=== PATIENT | female | born 1950 | race Caucasian/White ===

== ENCOUNTER → 2017-11-24 10:04 | Outpatient (CLI) | payer OTHER, SELFPAY ==
--- NOTE | 2017-11-24 | DI.MG.S_ITS ---
BILATERAL DIGITAL SCREENING MAMMOGRAM 3D/2D WITH CAD: 11/24/2017 CLINICAL: Routine screening. Comparison is made to exams dated: 03/16/2014 mammogram and 12/14/2009 mammogram - [facility]. The tissue of both breasts is extremely dense, which lowers the sensitivity of mammography. Current study was also evaluated with a Computer Aided Detection (CAD) system. No significant masses, calcifications, or other findings are seen in either breast. There has been no significant interval change. IMPRESSION: NEGATIVE There is no mammographic evidence of malignancy. A 1 year screening mammogram is recommended. This exam was interpreted at Station ID: [id number]. NOTE: For mammograms, a report in lay terms will be sent to the patient. Approximately 15% of breast malignancies will not be visualized mammographically. In the management of a palpable breast mass, a negative mammogram must not discourage biopsy of a clinically suspicious lesion. Electronically Signed By: Andreina laguerre/linda:11/26/2017 13:54:10 letter sent: Normal Exam ACR BI-RADS Category 1: Negative [id number]
== END ==
PROVIDERS: PCP Physician Assistant; Visit Provider Physician Assistant
DX: Z12.31 Encounter for screening mammogram for malignant neoplasm of breast (principal)
CPT/HCPCS: 77063; 77067

== ENCOUNTER → 2017-11-27 07:44 | Outpatient (CLI) | payer OTHER, SELFPAY ==
[2017-11-28 15:36] LABS: Progesterone 2.4 ng/mL
[2017-11-29 17:48] LABS: Z- Score (Female) -1.6 SD (-2.0 - +2.0)
== END ==
PROVIDERS: PCP Physician Assistant; Visit Provider Nurse Practitioner Family
DX: Z79.810 Long term (current) use of selective estrogen receptor modulators (SERMs) (principal)
CPT/HCPCS: 36415; 84144; 84305

== ENCOUNTER 2018-02-07 06:57 | Day surgery (SDC) | payer OTHER, SELFPAY ==
[2018-02-07] VITALS (10 sets, daily range): BP systolic 100–125; BP diastolic 45–73; PULSE 62–77; RESP 12–19; TEMP 35.9–37.4; O2SAT 92–99; BMI 32.8
[2018-02-07] MEDS: SODIUM CHLORIDE 0.9% 1,000 ML 21 ML IV (07:35)
[2018-02-07] MEDS: ONDANSETRON 4 MG/2 ML INJ IV (08:23)
[2018-02-07] MEDS: MIDAZOLAM 5 MG/5 ML VIAL IV (08:38)
[2018-02-07] MEDS: fentaNYL 250 MCG/5 ML INJ IV (08:39)
--- NOTE | 2018-02-07 08:56 | PM.HP.1 ---
History of Present Illness Date Patient Seen: 02/07/18 Time Patient Seen: 08:56 Chief complaint: [id number] SCREENING COLONOSCOPY Narrative: Taylor is a very pleasant 67-year-old lady who presents for her 1st screening colonoscopy. She denies any new problems or symptoms related to the function of her GI tract. She reports she needs a colonoscopy as part of the Health maintenance program. Patient History Family & Social History Family History: Reviewed 02/07/18 by Magui Mccain MD Meds Home Medications Medication Instructions Recorded Confirmed Type montelukast [Singulair] 10 mg PO QDAY #0 03/30/12 02/07/18 History cholecalciferol (vitamin D3) 1,000 unit PO DAILY 02/07/18 02/07/18 History [Vitamin D3] fexofenadine [Velvet Allergy] 30 mg PO DAILY 02/07/18 02/07/18 History oa-nw-IS-vit O-zwajc-tfy-coQ10 2 tab PO DAILY 02/07/18 02/07/18 History [Daily Multivitamin] progesterone micronized 100 mg PO QAM 02/07/18 02/07/18 History Allergies Allergy/AdvReac Type Severity Reaction Status Date / Time Penicillins Allergy Mild Nausea Verified 02/07/18 07:08 Sulfa (Sulfonamide Allergy Mild RASH Verified 02/07/18 07:08 Antibiotics) amoxicillin [From Augmentin] AdvReac Unknown nausea, Verified 02/07/18 07:08 fainted clavulanic acid AdvReac Unknown nausea, Verified 02/07/18 07:08 [From Augmentin] fainted Review of Systems Review of Systems All systems reviewed & are unremarkable except as noted in HPI and below Exam Vital Signs (past 8 hours): - 02/07/18 07:15 02/07/18 08:51 Temperature 98.2 F 96.7 F L Pulse Rate 77 77 Respiratory Rate 15 16 Blood Pressure 125/73 106/53 L Pulse Oximetry 95 92 Oxygen Delivery Method Room Air Narrative Exam Narrative: Very healthy well-nourished well-developed developed lady in no obvious distress. HEENT: Normocephalic and atraumatic, pupils equal round reactive to light accommodation with anicteric sclera Lungs: Clear to auscultation bilaterally, no wheezing Heart: Regular rate and rhythm without murmur rub or gallop Abdomen: Soft, nontender, active bowel sounds Extremities: Warm well perfused and without edema Assessment & Plan Plan: Assessment/Plan Narrative: Very pleasant, active, and healthy 67-year-old lady who presents for screening colonoscopy. We discussed the risks and benefits of the procedure the patient expressed a desire to complete it today.
--- NOTE | 2018-02-07 08:58 | PM.OP.1 ---
Operative Date/Time/Diagnoses Date of procedure: 02/07/18 Time of procedure: 08:58 Pre-op diagnosis: Screening Post-op diagnosis: same Procedure & Clinicians Procedure: Colonoscopy to the cecum Same procedure as scheduled: Yes Indications: No prior colonoscopy Surgeon: Magui Mccain Click Yes if Unassisted: Yes Anesthesia Type: Sedation (Versed 8 mg; fentanyl 150 mcg) Operative Notes Findings: 1. Excellent prep 2. No polyps or mass lesions 3. No AV malformations 4. Very minimal diverticulosis with just 2 or 3 pockets in the sigmoid colon 5. Grade 2 internal hemorrhoids Closure Type: not applicable Procedure in detail: After obtaining informed consent, the patient was brought to the GI suite and placed in the left lateral decubitus position on the examination table. After placement of appropriate monitors, the patient was given incremental doses of Versed and Fentanyl until an appropriate level of sedation was achieved. A time out was held per SCOAP protocol. A digital rectal examination was performed and did not reveal any masses or obstructing lesions. The colonoscope was gently passed into the patient's anus and the entire colon navigated to the level of the cecum with minimal difficulty. Once in the cecum, the scope was withdrawn being sure to go before and beyond all mucosal folds and prominences and get an excellent examination. The findings are noted above. At the level of the rectal vault, the scope was retroflexed and the internal anal canal was examined. The scope was straightened and air aspirated from the colon. The instrument was removed from the patient's body and the procedure was concluded. The patient was allowed to awaken from sedation without difficulty and taken to the post-anesthesia care unit in good condition. Total sedation time was 27 min Total withdrawal time was 14 min and 20 sec Complications: none Condition: stable Disposition: PACU Plan for aftercare: 1. Discharge to home 2. Plan for next colonoscopy in 10 years or as clinically indicated
== END 2018-02-07 10:00 | disposition home or self-care (01) ==
PROVIDERS: PCP Physician Assistant; Visit Provider Surgery
PROC: 0DJD8ZZ Inspection of Lower Intestinal Tract, Via Natural or Artificial Opening Endoscopic (ICD-10-PCS; CPT 45378; principal; 2018-02-07 07:45)
DX: Z12.11 Encounter for screening for malignant neoplasm of colon (principal); K57.30 Diverticulosis of large intestine without perforation or abscess without bleeding; K64.1 Second degree hemorrhoids
CPT/HCPCS: 45378; 99152; 99153; J2250; J2405; J3010

== ENCOUNTER → 2018-05-10 15:00 | Outpatient (CLI) | payer OTHER, SELFPAY ==
--- NOTE | 2018-05-10 | DI.CT.S_ITS ---
PROCEDURE: CT SINUS SCREEN WO CON INDICATIONS: chronic sinusitis TECHNIQUE: Noncontrast 3.0 mm axial images acquired from the frontal sinuses to the mid-sella, with coronal and sagittal reformats. For radiation dose reduction, the following was used: automated exposure control, adjustment of mA and/or kV according to patient size. COMPARISON: None. FINDINGS: Image quality: Excellent. Paranasal sinuses are normally aerated. Minimal mucosal thickening noted in the posterior aspect of the sphenoid sinuses. No air-fluid levels are identified. The osteomeatal units are patent bilaterally. No osseous erosive changes or osseous remodeling. There is osseous thickening along the posterior sphenoid sinus castano.. Nasal septum is deviated to the right. Small left geetha bullosa is noted. The anterior ethmoid artery notches are protected bilaterally. Type III cribriform plate is noted. The right lamina cribrosa situated approximately 2 mm inferior to the left lamina cribrosa. No frontal recess cells. The sphenoid pneumatization pattern is sellar incomplete. The sphenoid intersinus septum is midline. Type I optic canals noted. IMPRESSION: Mild chronic sphenoid sinusitis. Dictated by: Melissa Adam MD, PhD on 05/10/2018 at 15:32 Approved by: Melissa Adam MD, PhD on 05/10/2018 at 15:37
== END ==
PROVIDERS: PCP Physician Assistant; Visit Provider Otolaryngology
DX: J32.3 Chronic sphenoidal sinusitis (principal); J30.9 Allergic rhinitis, unspecified
CPT/HCPCS: 70486

== ENCOUNTER → 2018-11-07 12:37 | Outpatient (CLI) | payer OTHER, SELFPAY | PROVIDERS: PCP Physician Assistant | DX: Z23 Encounter for immunization (principal) | CPT/HCPCS: 90471; 90686 ==

== ENCOUNTER → 2019-01-25 09:50 | Outpatient (CLI) | payer OTHER, SELFPAY ==
--- NOTE | 2019-01-25 | DI.RAD.S_ITS ---
PROCEDURE: XR KNEE LT 1TO2V INDICATIONS: SCIATICA OF LEFT SIDE TECHNIQUE: 2 views of the knee were acquired. COMPARISON: [facility], , KNEE 3V RIGHT, 09/05/2013, 9:03. FINDINGS: Bones: No fractures or dislocations. No suspicious bony lesions. There is moderate lateral femorotibial joint space narrowing seen, with associated remodeling changes including subchondral sclerosis and osteophyte formation along the jointline. Soft tissues: No joint effusion. No suspicious soft tissue calcifications. IMPRESSION: Osteoarthritic degenerative changes are seen, which are most prominent involving the lateral femorotibial compartment. Dictated by: Gato Vicente M.D. on 01/25/2019 at 9:38 Approved by: Gato Vicente M.D. on 01/25/2019 at 9:39
== END ==
PROVIDERS: PCP Physician Assistant; Visit Provider Physician Assistant
DX: M54.32 Sciatica, left side (principal); M25.762 Osteophyte, left knee
CPT/HCPCS: 73560

== ENCOUNTER 2019-02-03 03:56 | Emergency (ER) | payer OTHER, SELFPAY ==
[2019-02-03 04:07] VITALS: BP 153/83; PULSE 94; RESP 16; TEMP 36.4; O2SAT 97; BMI 32.3
--- NOTE | 2019-02-03 04:14 | PC.NURSE ---
left tonsil bleeding after tonsilectomy 6 days ago.
[2019-02-03] MEDS: RACEPINEPHRINE 0.5 ML NEB INH (04:15)
[2019-02-03 04:23] VITALS: PULSE 72; RESP 16; O2SAT 99
--- NOTE | 2019-02-03 04:33 | ED_ITS ---
HPI - General Adult General Chief complaint: Dental/Oral Stated complaint: bleeding after tonsil removed Time Seen by Provider: 02/03/19 04:07 Source: patient Mode of arrival: Ambulatory Limitations: no limitations History of Present Illness HPI narrative: 68-year-old woman who is now 6 days post tonsillectomy after recurrence left peritonsillar abscess. Healing have been going well. She woke up just prior to arrival felt ?something? in the back of her throat coughed had a bit of bloody production and then began bleeding. The bleeding is coming from the left tonsillar pillar. She is able to speak in full sentences sitting upright using a suction device is able to control the bleeding. Related Data Home Medications Medication Instructions Recorded Confirmed montelukast [Singulair] 10 mg PO QDAY #0 03/30/12 04/10/18 cholecalciferol (vitamin D3) 1,000 unit PO DAILY 02/07/18 04/10/18 [Vitamin D3] fexofenadine [Velvet Allergy] 30 mg PO DAILY 02/07/18 04/10/18 ll-xp-NJ-vit N-casau-eoc-coQ10 2 tab PO DAILY 02/07/18 04/10/18 [Daily Multivitamin] progesterone micronized 100 mg PO QAM 02/07/18 04/10/18 estradiol [Estrace] 1 g VAGINAL 2XW 04/10/18 04/10/18 Allergies Allergy/AdvReac Type Severity Reaction Status Date / Time Penicillins Allergy Mild Nausea Verified 02/07/18 07:08 Sulfa (Sulfonamide Allergy Mild RASH Verified 02/07/18 07:08 Antibiotics) amoxicillin [From Augmentin] AdvReac Unknown nausea, Verified 02/07/18 07:08 fainted clavulanic acid AdvReac Unknown nausea, Verified 02/07/18 07:08 [From Augmentin] fainted Review of Systems Review of Systems Narrative: Denies ? fever ? cough ? cold ? chills ? chest pain ? dyspnea ? orthopnea ? wheezing ? abdominal pain ? change to bowel or bladder habits ? nausea vomiting ? skin changes ? rashes Patient History Social History Smoking Status: Never smoker Smoking Status: Never smoker alcohol intake frequency: 0-2 drinks per day Substance Use Type: does not use Exam Narrative Exam Narrative: General: Alert appropriate, speaking in full sentences, managing secretions and airway HEENT: Nicely healing right peritonsillar base post surgery. Left side with more eschar over the anterior tonsillar base and posterior to this in the superior portion posterior tonsillar space there is active bleeding with clot trying deformed. It is not pulsatile and patient is able to manage volume of blood Respiratory: no obvious respiratory distress, minor wheezes right side Cardiovascular: Regular rate and rhythm no murmurs Skin: No obvious rashes, warm and dry Neurologic: Grossly intact no obvious asymmetries or abnormalities Psych, appropriate insight and affect, cooperative Initial Vital Signs Initial Vital Signs: Vital Signs Temperature 97.6 F 02/03/19 04:07 Pulse Rate 94 H 02/03/19 04:07 Respiratory Rate 16 02/03/19 04:07 Blood Pressure 153/83 H 02/03/19 04:07 Pulse Oximetry 97 02/03/19 04:07 Course Course Course Narrative: Six day postsurgical peritonsillar hemorrhage. On arrival in the emergency room we gave her nebulized epinephrine followed by 500 mg of nebulized TXA. Bleeding was dramatically slowed and may possibly have been stopped. Clot was visible in the left tonsillar base. Using of bit of gauze soaked in TXA direct pressure and TXA is applied to the base/bleeding site. Adequate hemostasis was obtained. Patient was doing well after application of medicine. Orders Ordered: Discontinued Medications Epinephrine (Epinephrine Racemic) 0.5 ml INH NOW ONE Stop: 02/03/19 04:11 Last Admin: 02/03/19 04:15 Dose: 0.5 ml Documented by: NGHIA Ondansetron HCl (Zofran Odt) 4 mg SL NOW ONE Stop: 02/03/19 04:48 Last Admin: 02/03/19 04:52 Dose: 4 mg Documented by: NUNU Tranexamic Acid (Cyklokapron) 1,000 mg MM NOW ONE Stop: 02/03/19 04:14 Last Admin: 02/03/19 04:55 Dose: 1,000 mg Documented by: NUNU Reevaluation(s) Reevaluation #1: She had a large clot down the posterior pharynx that she was able to get out effectively. After getting this out she is feeling some ?seeping? but is having no active bleeding. Sitting upright and quite comfortable Re-evaluation approximately 5 minutes later there's a nice clot forming over the left tonsillar pillar. Still no recurrence active bleeding. Zofran is given to prevent any emesis Time: 05:30 Reevaluation #2: Still a slow ooze with continued flow clot formation over the left tonsillar pillar. Will touch base with ENT. Remains hemodynamically stable and otherwise comfortable Time: 05:42 Vital Signs Vital signs: Vital Signs - 8 hr 02/03/19 04:07 02/03/19 04:23 02/03/19 05:03 Temperature 97.6 F Pulse Rate 94 H 72 81 Respiratory Rate 16 16 Blood Pressure 153/83 H Blood Pressure [Left Arm] 164/85 H Pulse Oximetry 97 99 99 Medical Decision Making Medical Records Medical records reviewed: Yes I reviewed the patient's medical records. MDM Narrative Medical decision making narrative: Case is reviewed with Dr. Massey. Patient is continuing to do well with slight oozing continued clot formation without active bleeding at this time. Continue to observe her over the next hour and will discharge her home with instructions to follow-up immediately this morning in the [facility] office. Dr. Massey will further evaluate and see if any additional treatment options are required. Discharge Plan Departure Patient Disposition: Home Clinical Impression: Post tonsillectomy secondary hemorrhage Instructions: DI for Tonsillectomy-Adult Activity Restrictions/Additional Instructions: Thank you for coming in today. I'm sorry that you needed to. It looks like some of the scab broke away from the left healing tonsil site. There was some bleeding that was controlled with nebulized racemic epi , nebulized transexamic acid and a slight amount of pressure and direct application of topical transexamic acid. With the bleeding significantly slowed and possibly even stopped at this point, I have spoken with Dr. Massey. There's no additional treatment needs to be done in the emergency department however, he would like to see you 1st thing this morning. He expects to be in the office by 715 or 730. After your discharge from the emergency department please go directly to his office. Please hold off on eating any food or drink until his had a chance to look and make sure that that clot is stabilized in the bleeding is completely controlled. I hope you heal quickly and I wish you the very best Prescriptions: No Action montelukast [Singulair] 10 MG tablet 10 mg PO QDAY Qty: 0 RF: 0 estradiol [Estrace] 0.01 % (0.1 mg/gram) Cream 1 g VAGINAL 2XW RF: 0 progesterone micronized 100 mg Capsule 100 mg PO QAM RF: 0 fexofenadine [Velvet Allergy] 60 mg Tablet 30 mg PO DAILY RF: 0 cholecalciferol (vitamin D3) [Vitamin D3] 1,000 unit Capsule 1,000 unit PO DAILY RF: 0 Daily Multivitamin 200-100-500 mcg Capsule 2 tab PO DAILY RF: 0 Referrals: Yaneth Bojorquez PA-C [Primary Care Provider] -
--- NOTE | 2019-02-03 04:38 | PC.NURSE ---
Pt reports the bleeding hasn't slowed after racemic epi and TXA nebs. Dr Fitzpatrick now at bedside applying TXA topically to bleeder.
[2019-02-03] MEDS: ONDANSETRON 4 MG ODT SL (04:52)
[2019-02-03] MEDS: TRANEXAMIC ACID 1,000 MG VIAL 1000 MG MM (04:55)
--- NOTE | 2019-02-03 04:55 | PC.NURSE ---
txa given by sam lewis in a neb per dr dawn order.
[2019-02-03 05:03] VITALS: BP 164/85; PULSE 81; O2SAT 99
--- NOTE | 2019-02-03 05:24 | PC.NURSE ---
Pt reports bleeding is slowing now.
[2019-02-03 06:03] VITALS: BP 122/71; PULSE 79; RESP 19; O2SAT 94
[2019-02-03 07:19] VITALS: BP 122/71; PULSE 77; RESP 16; O2SAT 94
--- NOTE | 2019-02-03 07:22 | PC.NURSE ---
patient taken to Dr Lam[facility] with daughter
== END 2019-02-03 07:23 | disposition home or self-care (01) ==
PROVIDERS: Emergency Provider Emergency Medicine; PCP Physician Assistant
DX: J95.830 Postprocedural hemorrhage of a respiratory system organ or structure following a respiratory system procedure (principal)
CPT/HCPCS: 94640; 99282; 99283

== ENCOUNTER 2019-02-07 03:36 | Emergency (ER) | payer OTHER, SELFPAY ==
[2019-02-07 03:44] VITALS: BP 140/60; PULSE 72; RESP 15; TEMP 36.5; O2SAT 95; BMI 30.7
[2019-02-07] MEDS: TRANEXAMIC ACID 1,000 MG VIAL 1000 MG MM (03:58)
--- NOTE | 2019-02-07 04:00 | PC.NURSE ---
PT had recent tonsillectomy. clot seen on left side of throat. pt reports still being able to taste blood.
[2019-02-07] MEDS: KETOROLAC 60 MG/2 ML VIAL IM (04:37)
--- NOTE | 2019-02-07 04:37 | ED_ITS ---
HPI - Dental/Oral General Chief complaint: Dental/Oral Stated complaint: Tonsil bleeding Time Seen by Provider: 02/07/19 03:36 Source: patient Mode of arrival: Family Vehicle Limitations: no limitations History of Present Illness HPI Narrative: 68-year-old female non smoker presents with the chief complaint of mild amount of bleeding which she noticed upon awaking tonight. She had a tonsillectomy on 01/28 with local ENT. She'd been seen a few days ago with a much more impressive bleed, which was controlled with nebulized TXA. She'd been seen in follow up and had done well until tonight. She thought the bleeding started after a pill of motrin got caught and she hacked it up. She denies any pain. She denies trouble breathing or choking. She has no dizziness, weakness, or shortness of breath. She is otherwise well and free of complaint. Onset (ago): minute(s) Duration: now resolved Severity: mild Relieving factors: nothing Exacerbating factors: nothing Treatment prior to arrival: none Related Data Home Medications Medication Instructions Recorded Confirmed montelukast [Singulair] 10 mg PO QDAY #0 03/30/12 04/10/18 cholecalciferol (vitamin D3) 1,000 unit PO DAILY 02/07/18 04/10/18 [Vitamin D3] fexofenadine [Velvet Allergy] 30 mg PO DAILY 02/07/18 04/10/18 oj-hi-FF-vit C-gfeqn-mbh-coQ10 2 tab PO DAILY 02/07/18 04/10/18 [Daily Multivitamin] progesterone micronized 100 mg PO QAM 02/07/18 04/10/18 estradiol [Estrace] 1 g VAGINAL 2XW 04/10/18 04/10/18 Allergies Allergy/AdvReac Type Severity Reaction Status Date / Time Penicillins Allergy Mild Nausea Verified 02/07/18 07:08 Sulfa (Sulfonamide Allergy Mild RASH Verified 02/07/18 07:08 Antibiotics) amoxicillin [From Augmentin] AdvReac Unknown nausea, Verified 02/07/18 07:08 fainted clavulanic acid AdvReac Unknown nausea, Verified 02/07/18 07:08 [From Augmentin] fainted Review of Systems Constitutional Constitutional: Denies chills, Denies fatigue, Denies fever(s), Denies frequent falls, Denies lethargy and Denies weakness Eyes Eyes: Denies change in vision, Denies eye discharge, Denies irritation and Denies loss of vision ENT Ears, Nose, Mouth, and Throat: Denies change in voice, Denies dizziness, Denies neck pain, Denies sore throat, Denies throat swelling and Reports other Cardiovascular Cardiovascular: Denies chest pain, Denies irregular heart rhythm, Denies lightheadedness, Denies palpitations, Denies dyspnea, Denies dyspnea on exertion and Denies orthopnea Respiratory Respiratory: Denies cough, Denies dyspnea, Denies dyspnea on exertion and Denies wheezing Gastrointestinal Gastrointestinal: Denies abdominal pain, Denies change in bowel habits, Denies diarrhea, Denies nausea and Denies vomiting Genitourinary Genitourinary: Denies hematuria, Denies flank pain, Denies urinary incontinence and Denies urinary urgency Musculoskeletal Musculoskeletal: Denies back pain, Denies muscle weakness, Denies neck pain, Denies numbness and Denies tingling Integumentary/Breasts Skin/Breast: Denies pruritus, Denies erythema, Denies rash and Denies wounds Neurologic Neurologic: Denies behavioral changes, Denies confusion, Denies dizziness, Denies frequent falls, Denies loss of vision, Denies numbness, Denies tingling and Denies weakness Psychiatric Psychiatric: Denies anxiety, Denies behavioral changes, Denies confusion, Denies depression, Denies homicidal ideation and Denies suicidal ideation Endocrine Endocrine: Denies fatigue, Denies flushing and Denies palpitations Hematologic/Lymphatic Hematologic/Lymphatic: Denies easy bruising Allergic/Immunologic Allergic/Immunologic: Denies urticaria, Denies throat swelling and Denies wheezi ng Patient History Social History Smoking Status: Never smoker Smoking Status: Never smoker alcohol intake frequency: 0-2 drinks per day Substance Use Type: does not use Exam Narrative Exam Narrative: GEN: AOx3 and in mild distress EYES: Pupils are equal, round, and reactive to light and accommodation. Extraoccular muscles are intact bilaterally. There is no subconjunctival hemorrhage or exudate. ENT: no active bleeding on tonsillar bed, but there is fresh clot on the left. No significant swelling or other abnormal findings CHEST: Lungs are clear to auscultation bilaterally and free of wheezes, rales, or rhonchi. Heart rate is regular rhythm, there are no murmurs, clicks, rubs, or gallops. There is no chest wall tenderness. ABD: Abdomen is soft and nontender. There is no guarding or rebound. Bowel sounds are normal in all 4 quadrants. There is no mass or organomegaly. EXT: Full painless ROM of all extremities with no loss of sensation or strength. SKIN: Warm, pink, and dry. No erythema or rash Initial Vital Signs Initial Vital Signs: Vital Signs Temperature 97.7 F 02/07/19 03:44 Pulse Rate 72 02/07/19 03:44 Respiratory Rate 15 02/07/19 03:44 Blood Pressure 140/60 02/07/19 03:44 Pulse Oximetry 95 02/07/19 03:44 Course Course Course Narrative: nebulized TXA results in hemostasis. Patient doing quite well. Call to [facility] ENT (Sandra) whom is in agreement with our treatment and plan to DC with close follow up. Orders Ordered: Discontinued Medications Ketorolac Tromethamine (Toradol) 60 mg IM NOW ONE Stop: 02/07/19 04:34 Tranexamic Acid (Cyklokapron) 1,000 mg MM NOW ONE Stop: 02/07/19 03:48 Last Admin: 02/07/19 03:58 Dose: 1,000 mg Documented by: SYDNEY Vital Signs Vital signs: Vital Signs - 8 hr 02/07/19 03:44 Temperature 97.7 F Pulse Rate 72 Respiratory Rate 15 Blood Pressure 140/60 Pulse Oximetry 95 Discharge Plan Departure Patient Disposition: Home Clinical Impression: Post tonsillectomy secondary hemorrhage Instructions: DI for Post-Surgical Bleeding Activity Restrictions/Additional Instructions: *You have been diagnosed with [post-tonsillectomy hemorrhage ] *What to do: *Continue to take medications as directed. Stick with the clear liquid diet that you've been using. *Follow up with your ENT doctor later today, call the office at 0730 for an appointment. Let them know you were seen in the Emergency Department and that we ask that you be seen in follow up *Return to ER if you should have any new, worsening or concerning symptoms Prescriptions: No Action montelukast [Singulair] 10 MG tablet 10 mg PO QDAY Qty: 0 RF: 0 estradiol [Estrace] 0.01 % (0.1 mg/gram) Cream 1 g VAGINAL 2XW RF: 0 progesterone micronized 100 mg Capsule 100 mg PO QAM RF: 0 fexofenadine [Velvet Allergy] 60 mg Tablet 30 mg PO DAILY RF: 0 cholecalciferol (vitamin D3) [Vitamin D3] 1,000 unit Capsule 1,000 unit PO DAILY RF: 0 Daily Multivitamin 200-100-500 mcg Capsule 2 tab PO DAILY RF: 0 Referrals: Yaneth Bojorquez PA-C [Primary Care Provider] - Jack Knight MD [Physician] -
[2019-02-07 04:45] VITALS: BP 120/65; PULSE 61; O2SAT 96
== END 2019-02-07 04:46 | disposition home or self-care (01) ==
PROVIDERS: Emergency Provider Emergency Medicine; PCP Physician Assistant
DX: J95.830 Postprocedural hemorrhage of a respiratory system organ or structure following a respiratory system procedure (principal)
CPT/HCPCS: 96372; 99282; 99283; J1885

== ENCOUNTER → 2019-02-10 09:47 | Outpatient (CLI) | payer OTHER, SELFPAY ==
[2019-02-10 12:19] LABS: Progesterone, Total 1.09 ng/mL
== END ==
PROVIDERS: PCP Physician Assistant; Visit Provider Nurse Practitioner Family
DX: Z79.890 Hormone replacement therapy (principal); N95.1 Menopausal and female climacteric states
CPT/HCPCS: 36415; 84144

== ENCOUNTER → 2019-03-21 09:28 | Outpatient (CLI) | payer OTHER, SELFPAY ==
--- NOTE | 2019-03-21 09:30 | DI.CT.S_ITS ---
PROCEDURE: CT SOFT TISSUE NECK W CON INDICATIONS: LYMPHOMA (CLL) TECHNIQUE: After the administration of intravenous contrast, 3.0 mm axial sections acquired from the sella to the aortic arch. Additional oblique axial 3.0 mm sections acquired through the pharynx. 3 mm thick coronal and sagittal reformats were generated. For radiation dose reduction, the following was used: automated exposure control. COMPARISON: [facility], US, THYROID, 11/12/2015, 10:00. [facility], CT, NECK/CHEST/ABD/PEL W CONTRAST, 09/02/2015, 9:33. [facility], CT, NECK/CHEST/ABD/PEL W CONTRAST, 10/06/2016, 9:49. FINDINGS: Image quality: Excellent. Lymph nodes: Numerous enlarged bilateral level I, level II, level III, level IV, level V and level and neck lymph nodes are noted which have increased in size compared to 10/06/2016. Bilateral large supraclavicular and subpectoral enlarged chest lymph nodes are also noted which have also increased in size compared to 10/06/16. Vessels: Visualized vasculature appears patent. Neck spaces: Mucosal prominence is noted in the right tongue base causing partial opacification of the right vallecula. The nasopharynx, and pharynx demonstrate no mucosal lesions. The vocal cords, false vocal cords, pyriform sinuses, epiglottis, vallecula, and tongue base all appear normal. Extramucosal spaces appear unremarkable. Glands: The parotid and submandibular glands appear normal. Thyroid gland is stable in appearance compared to prior exams. Miscellaneous: Visualized brain and orbits appear normal. Lung apices appear clear. Partially visualized cyst versus bulla noted in the right lung apex. Superficial soft tissues appear normal. Bones: No suspicious bony lesions. Spine degenerative disc disease and facet arthropathy. Mild mucosal thickening noted in the maxillary sinuses. The mastoids appear unremarkable. IMPRESSION: 1. Extensive bilateral neck and upper chest lymphadenopathy. Numerous enlarged lymph nodes have increased in size compared to prior examination obtained 10/06/1116. Finding most compatible with recurrent/residual lymphoma. 2. Slight mucosal thickening involving the right tongue base causing partial opacification of the right vallecula. Recommend correlation with direct visualization to exclude mucosal-based neoplastic process. Dictated by: Melissa Adam MD, PhD on 03/21/2019 at 13:27 Approved by: Melissa Adam MD, PhD on 03/21/2019 at 13:37
[2019-03-21 09:52] LABS: Hemoglobin 12.3 g/dL (12.0-16.0); Mean Corpuscular HGB Conc 33.3 % (30-36); Mean Corpuscular Hemoglobin 31.8 PG (26-34); Mean Corpuscular Volume 95.4 fL (80-100); Platelet Count 205 X10^3/uL (150-400); Red Blood Cell Count 3.88 X10^6/uL (4.0-5.2); White Blood Cell Count 16.3 X10^3/uL (4.5-11.0)
[2019-03-21 09:53] LABS: Add Manual Diff / Slide Review YES
[2019-03-21 09:59] LABS: Alanine Aminotransferase 17 IU/L (<35); Albumin 4.4 g/dL (3.5-5.0); Albumin Globulin Ratio 1.6 (1.0-2.8); Alkaline Phosphatase 75 U/L (38-126); Aspartate Aminotransferase 30 IU/L (14-36); BUN Creatinine Ratio 21.4 (6-22); Bilirubin Total 0.8 mg/dL (0.2-1.3); Blood Urea Nitrogen 15 mg/dL (7-17); Calcium 9.4 mg/dL (8.4-10.2); Carbon Dioxide 26 mmol/L (22-32); Chloride 107 mmol/L (98-107); Estimated Glomerular Filt Rate > 60.0 mL/min (>60); Globulin 2.8 g/dL (1.7-4.1); Glucose 112 mg/dL (80-110); HEMOLYSIS < 15 (0-50); Lactate Dehydrogenase 412 U/L (313-618); Potassium 4.3 mmol/L (3.4-5.1); Sodium 140 mmol/L (137-145); Total Protein 7.2 g/dL (6.3-8.2)
[2019-03-21 10:11] LABS: Neutrophils Absolute Manual 1793 /uL (3000-5900); RBC Morphology Normal Morphology; Smudge Cells 2+; Total Cells Counted 100
--- NOTE | 2019-03-21 10:43 | DI.CT.S_ITS ---
PROCEDURE: CT CHEST ABD PEL W CON INDICATIONS: LYMPHOMA TECHNIQUE: After the administration of oral and intravenous contrast, 5 mm thick sections acquired from the lung apices to the symphysis. 5 mm coronal and sagittal reformats were performed, with additional 7 mm coronal MIP reformats through the lungs. For radiation dose reduction, the following was used: automated exposure control, adjustment of mA and/or kV according to patient size. COMPARISON: [facility], [place], PET/CT SKULL BASE TO MID THIGH, 06/26/2014, 12:17. [facility], CT, THORAX WITH CONTRAST, 01/14/2015, 14:07. [facility], CT, NECK/CHEST/ABD/PEL W CONTRAST, 10/06/2016, 9:49. [facility], CT, NECK/CHEST/ABD/PEL W CONTRAST, 03/27/2016, 9:52. [facility], CT, CT SOFT TISSUE NECK W CON, 03/21/2019, 10:47. FINDINGS: Image quality: Excellent. CHEST: Lungs and pleura: There are nodular airspace opacities in the right lower lobe medially, new since the last exam. No pleural effusions or pneumothorax. Central and peripheral airways are patent and normal in caliber. Mediastinum: Heart size is normal. No pericardial effusion. There are multiple enlarged mediastinal lymph nodes, slightly increased compared to the last exam. For example, a prevascular lymph node measures 1.1 mm, previously 6 mm. Thoracic aorta and central pulmonary arteriesare normal in size. Esophagus is normal in size. No hiatal hernia. Chest wall: There is extensive supraclavicular and axillary adenopathy, slightly increased. For example, a 1.5 x 2.5 cm right axillary lymph node previously measured 1.0 x 2.2 cm on the last examination. A 1.6 x 2.2 cm left axillary lymph node is unchanged in size. There is mild paraspinal soft tissue thickening bilaterally, new since last exam. ABDOMEN: Solid organs: Liver and spleen are normal in size. Gallbladder is normal. Biliary system is non-dilated. Pancreas enhances normally. No adrenal nodules. Both kidneys are normal in size and enhancement, without hydronephrosis. Peritoneum and bowel: Bowel loops are normal in caliber and wall thickness. There are colonic diverticula. No evidence for active diverticulitis. No free fluid or air. Nodes and vessels: There is retroperitoneal lymphadenopathy. The largest lymph node is in the periportal region measuring 2.5 x 4.2 cm, increasing in size (previously 2.1 x 3.2 cm). A conglomerate left para-aortic lymph nodes measure 2.7 x 2.9 cm, previously not visualized. There is bilateral common, internal and external iliac lymphadenopathy, increased compared to the last exam. For example, a 2.4 x 2.2 cm left common iliac lymph node Previously measured 1.8 x 2.1 mm. Aorta and inferior vena cava are normal in caliber. Miscellaneous: No ventral hernias. PELVIS: Genitourinary: Bladder wall thickness is normal. Miscellaneous: Mildly enlarged inguinal lymph nodes are present bilaterally, demonstrating interval enlargement. For instance, a 2.0 x 2.6 cm right inguinal lymph node previously measured 1.1 x 1.5 cm. No inguinal hernias. Bones: No suspicious bony lesions. No vertebral body compression fractures. IMPRESSION: 1. Progressive worsening of lymphadenopathy in lower neck, mediastinum, axillae, retrograde, iliac lymph node chains bilaterally and inguinal lymph node chains bilaterally, consistent with worsening of lymphoma. 2. New nodular airspace opacities in the medial aspect of the right lower lobe. Although infectious etiologies are most likely, pulmonary lymphoma cannot be excluded. 3. Paraspinal soft tissue swelling in the lower thorax bilaterally, new since the last exam. If clinically indicated, MRI may be helpful. Dictated by: Viktoriya Tran M.D. on 03/21/2019 at 12:05 Approved by: Viktoriya Tran M.D. on 03/21/2019 at 18:23
[2019-03-25 15:24] LABS: Beta-2-Microglobulin 4.55 mg/L (< 2.52)
== END ==
PROVIDERS: PCP Physician Assistant; Referring Provider Internal Medicine Hematology & Oncology; Visit Provider Internal Medicine Hematology & Oncology
DX: C83.01 Small cell B-cell lymphoma, lymph nodes of head, face, and neck (principal); C83.02 Small cell B-cell lymphoma, intrathoracic lymph nodes; R59.0 Localized enlarged lymph nodes
CPT/HCPCS: 36415; 70491; 71260; 74177; 80053; 82232; 83615; 85025; Q9967

== ENCOUNTER → 2019-11-06 | Outpatient (CLI) | payer OTHER, SELFPAY | PROVIDERS: PCP Physician Assistant; Referring Provider Internal Medicine; Visit Provider Internal Medicine | DX: Z23 Encounter for immunization (principal) | CPT/HCPCS: 90471; 90662 ==

== ENCOUNTER → 2019-11-12 13:15 | Outpatient (CLI) | payer OTHER, SELFPAY ==
--- NOTE | 2019-11-12 | DI.MRI.S_ITS ---
PROCEDURE: MR KNEE LT WO CON INDICATIONS: Left knee pain, history of CLL obtained from chart review. TECHNIQUE: Noncontrast sagittal PD fast spin echo and T2 fast spin echo with fat saturation, sagittal 3-D FLASH with fat saturation; coronal T1 spin echo and PD fast spin echo with fat saturation, and axial PD fast spin echo with fat saturation through the knee. COMPARISON: [facility], MR, KNEE WITHOUT CONTRAST, 09/05/2013, 20:35. [facility] [place], CR, XR KNEE ARTHRITIC SERIES LT, 04/14/2019, 15:00. FINDINGS: Image quality: Excellent. Menisci: Linear horizontally oriented high signal intensity traverses the medial meniscal body and posterior horn, demonstrating inferior articular surface extension. There is a bucket-handle anteroposterior tear of the lateral meniscus, with displacement of a portion of the posterior horn anteriorly. Cruciate ligaments: The anterior and posterior cruciate ligaments appear intact. Medial structures: The medial collateral ligament appears intact. Visualized portions of the pes anserinus tendons appear normal. No abnormal bursal fluid. Lateral structures: The lateral collateral ligament demonstrates mild T2 signal elevation at its femoral origin. The long and short heads of the biceps femoris tendon appear intact. The popliteus tendon appears normal. Iliotibial band appears normal. Anterior structures: The quadriceps and patellar tendons appear intact. Patellar alignment is normal. No femoral trochlear dysplasia or ventral trochlear prominence. No edema in the infrapatellar fat pad. Moderate prepatellar fluid. Bones and cartilage: No bone marrow contusions or fractures. Diffuse low T1 signal marrow infiltration within the distal femur, proximal tibia and fibula . There is a rim of moderate STIR signal elevation within the soft tissues surrounding the distal femur, proximal tibia and fibula, measuring 5 mm or less in thickness. This finding is most suggestive of lymphomatous infiltration, given the patient's history. There is moderate articular cartilage loss diffusely overlying the weight-bearing aspects of the medial femoral condyle and medial tibial plateau. Severe articular cartilage loss overlies the weight-bearing aspects of the lateral femoral condyle and lateral tibial plateau. Mild articular cartilage loss overlies the medial and lateral patellar facets, and there is a superimposed high-grade region of articular cartilage loss measuring 5 mm overlying the lateral apex. Joint space: There is a small knee joint effusion and a small Zaman's cyst. Normal appearing synovial plicae are incidentally noted. 18 mm ganglion cyst at the posterior superior aspect of the intercondylar notch. IMPRESSION: 1. Lymphoma infiltration involving the distal femur, proximal tibia and fibula. There is abnormal signal intensity within the soft tissues surrounding these osseous structures, suggestive of reactive soft tissue edema versus soft tissue infiltration. 2. Tricompartmental osteoarthritis with associated articular cartilage loss. 3. Bucket-handle type tear of lateral meniscus. Horizontal type tear of medial meniscus. 4. Knee joint effusion and Zaman's cyst. 5. Partial thickness lateral collateral ligament tear. Dictated by: Deloris Blackwood M.D. on 11/12/2019 at 14:28 Approved by: Deloris Blackwood M.D. on 11/12/2019 at 14:36
== END ==
PROVIDERS: PCP Physician Assistant; Referring Provider Orthopaedic Surgery; Visit Provider Orthopaedic Surgery
DX: C83.08 Small cell B-cell lymphoma, lymph nodes of multiple sites (principal); M25.562 Pain in left knee; S83.282A Other tear of lateral meniscus, current injury, left knee, initial encounter; S83.422A Sprain of lateral collateral ligament of left knee, initial encounter; M17.12 Unilateral primary osteoarthritis, left knee; M25.462 Effusion, left knee; M71.21 Synovial cyst of popliteal space [Baker], right knee
CPT/HCPCS: 73721

== ENCOUNTER → 2019-11-21 12:10 | Outpatient (CLI) | payer OTHER, SELFPAY ==
[2019-11-21 12:23] LABS: Add Manual Diff / Slide Review YES; Hematocrit 37.7 % (36-46); Hemoglobin 12.6 g/dL (12.0-16.0); Mean Corpuscular HGB Conc 33.3 % (30-36); Mean Corpuscular Hemoglobin 31.9 PG (26-34); Mean Corpuscular Volume 95.8 fL (80-100); Platelet Count 168 X10^3/uL (150-400); Red Blood Cell Count 3.93 X10^6/uL (4.0-5.2); Red Cell Distribution Width 13.4 % (11.6-14.8)
[2019-11-21 12:35] LABS: Alanine Aminotransferase 17 IU/L (<35); Albumin 4.3 g/dL (3.5-5.0); Albumin Globulin Ratio 1.7 (1.0-2.8); Alkaline Phosphatase 63 U/L (38-126); Aspartate Aminotransferase 29 IU/L (14-36); BUN Creatinine Ratio 29.6 (6-22); Bilirubin Total 0.8 mg/dL (0.2-1.3); Blood Urea Nitrogen 21 mg/dL (7-17); Calcium 9.1 mg/dL (8.4-10.2); Carbon Dioxide 29 mmol/L (22-32); Chloride 106 mmol/L (98-107); Estimated Glomerular Filt Rate > 60.0 mL/min (>60); Globulin 2.5 g/dL (1.7-4.1); Glucose 90 mg/dL (80-110); HEMOLYSIS < 15 (0-50); Lactate Dehydrogenase 421 U/L (313-618); Potassium 4.3 mmol/L (3.4-5.1); Sodium 139 mmol/L (137-145); Total Protein 6.8 g/dL (6.3-8.2)
[2019-11-21 12:50] LABS: Neutrophils Absolute Manual 3990 /uL (3000-5900); Total Cells Counted 100
[2019-11-21 12:52] LABS: RBC Morphology Norm; Smudge Cells 2+
== END ==
PROVIDERS: Internal Medicine Hematology & Oncology; PCP Physician Assistant; Referring Provider Physician Assistant; Visit Provider Physician Assistant
DX: C83.00 Small cell B-cell lymphoma, unspecified site (principal)
CPT/HCPCS: 36415; 80053; 83615; 85025

== ENCOUNTER → 2019-12-01 13:21 | Outpatient (CLI) | payer OTHER, SELFPAY ==
--- NOTE | 2019-12-01 13:24 | DI.RAD.S_ITS ---
PROCEDURE: XR KNEE LT 3V INDICATIONS: Destructive bony lesion of distal femur on MRI, h/o CLL/SLL TECHNIQUE: 3 views of the knee were acquired. COMPARISON: [facility], CR, XR KNEE LT 1TO2V, 01/25/2019, 9:52. [facility] [place], CR, XR KNEE ARTHRITIC SERIES LT, 04/14/2019, 15:00. FINDINGS: Bones: No fractures or dislocations. Multiple bony lytic lesions present involving the distal femoral metadiaphysis in the proximal tibia as was seen on prior MRI. Background osteoarthritic changes redemonstrated. Soft tissues: Moderate effusion.. No suspicious soft tissue calcifications. IMPRESSION: 1. Multiple lytic bony lesions involving the distal femur and proximal tibia as was seen on prior MRI and underlying neoplasm such as lymphoma or metastatic disease cannot be excluded. Dictated by: Scottie MCDOWELL Interpreted: Deloris Blackwood MD on 12/01/2019 at 13:49 Approved by: Deloris Blackwood M.D. on 12/01/2019 at 15:42
== END ==
PROVIDERS: PCP Physician Assistant; Referring Provider Internal Medicine; Visit Provider Internal Medicine
DX: C83.02 Small cell B-cell lymphoma, intrathoracic lymph nodes; C83.01 Small cell B-cell lymphoma, lymph nodes of head, face, and neck; M89.9 Disorder of bone, unspecified
CPT/HCPCS: 73562

== ENCOUNTER → 2019-12-25 15:48 | Outpatient (CLI) | payer OTHER, SELFPAY ==
--- NOTE | 2019-12-25 15:51 | DI.RAD.S_ITS ---
PROCEDURE: XR BONE SURVEY INDICATIONS: Lytic lesions left knee, looking for additional lesions TECHNIQUE: Multiple views obtained of various bony structures as described below. COMPARISON: [facility], [place], NM PET CT FUSION WHOLE BODY, 12/10/2019, 17:06. [facility], MR, MR KNEE LT WO CON, 11/12/2019, 13:25. [facility] [place], CR, XR KNEE ARTHRITIC SERIES LT, 04/14/2019, 15:00. FINDINGS: Skull (lateral): Nonspecific lucent appearance seen at the vertex, technically indeterminate on one view only. No fractures. Thoracic spine (AP, lateral): No suspicious bony lesions. No acute vertebral body compression fractures. Diffuse spondylitic changes. Lateral curvature of the spine. Lumbar spine (AP, lateral): No suspicious bony lesions. No acute vertebral body compression fractures. Diffuse spondylosis. Moderate narrowing of the L4-L5 and severe narrowing of the L5-S1 disc spaces. Grade 1 retrolisthesis of L4 on L5. Facet arthropathy. Pelvis (AP): There are scattered lucent subcentimeter foci projecting over the pelvis however this is not well evaluated due to overlying stool. Technically cannot exclude small lytic foci within the osseous structures. No fractures. Overlying soft tissues appear unremarkable. Mild to moderate bilateral hip joint degeneration. Right and left humeri (AP): No fracture identified. There are stippled and sub 5 mm lytic appearing foci present throughout both proximal humeri. Right and left femurs (AP): No fractures. Small lytic/lucent foci present in the right and left proximal and distal femur and proximal tibia suggestive of diffuse marrow infiltrative process. Overlying soft tissues appear unremarkable. IMPRESSION: Diffuse sub 5 mm lytic lucent foci involving the bilateral proximal humeri, femur and proximal tibia in keeping with diffuse marrow infiltrative process/metastatic disease. Of note, on the recent comparison PET-CT, no associated hypermetabolic activity was identified in these locations. Dictated by: George Nguyen M.D. on 12/26/2019 at 9:25 Approved by: George Nguyen M.D. on 12/26/2019 at 9:35
== END ==
PROVIDERS: PCP Physician Assistant; Referring Provider Internal Medicine; Visit Provider Internal Medicine
DX: C83.00 Small cell B-cell lymphoma, unspecified site (principal); M89.9 Disorder of bone, unspecified
CPT/HCPCS: 77075

== ENCOUNTER 2020-01-08 07:16 | Outpatient (CLI) | payer OTHER, SELFPAY ==
--- NOTE | 2020-01-08 | PATH_ITS ---
[facility] Accession Number: [id number] . 01 Material submitted: . bone - BONE FEMUR BX . 01 Clinical history: . DISTAL L FEMORAL METADIAPHYSIS THROUGH OSTEOLYTIC 2-3 MM BONE DEFECT. LOW GRADE LYMPHOMA WITH SUSPECTED FOCAL HIGHER GRADE TRANSFORMATION AND CLUSTER. A SMALL OSTEOLYTIC LESIONS @ SITE. . 01 Diagnosis: Femur, left metadiaphysis: --- B-lymphoproliferative disorder ---- Morphologic and immunohistochemical features compatible with chronic lymphocytic leukemia / small lymphocytic lymphoma (CLL/SLL) -- See comments . BM 01/14/2020 1325 Local . 01 Comment: FISH testing is recommended to rule out the t(11;14) characteristic of Mantle Cell Lymphoma (MCL) and evaluate for cytogenetic alterations with prognostic significance in CLL/SLL. This sample could be used for the former, but not for the latter, as it was received in formalin. If no further bone marrow studies, from which complete FISH testing could be performed, is to be done, please advise this lab to order and initiate the t(11;14) FISH, if clinically indicated. . 01 Electronically signed: . Gracia Martinez MD, Pathologist NPI- [id number] . 01 Gross description: . BONE FEMUR BX: Received in formalin are 2 fragment(s) of abbott, soft tissue measuring 1.5 x 0.1 x 0.1 cm to 1.3 x 0.1 x 0.1 cm submitted entirely in 1 cassette(s) /QBJ 01/09/2020 0948 Local . 01 Microscopic: . H/E sections demonstrate fragments comprising monotonous sheets of small lymphoid cells with high N:C ratios, smooth round nuclear membranes, mature-appearing chromatin, and without visible nucleoli. Focally, adipocytes are present. Unremarkable striated muscle is also seen. . In order to more fully characterize this process, immunohistochemical stains were indicated. The controls reacted appropriately. . Findings: CD3: Scattered small T-lymphoid cells present throughout (membranous/strong) CD5: Positive (membranous/strong) CD10: Negative CD20: Positive (membranous/strong) CD23: Positive (membranous/strong) BCL-2: Positive (membranous/strong) BCL-6: Negative CyclinD1: Negative CD56: Isolated single cells positive (membranous/strong) CD138: Scattered single cells positive, none in clusters (membranous/strong) kappa: Scattered single cells positive, none in clusters (cytoplasmic/strong) lambda: Scattered single cells positive, none in clusters (cytoplasmic/strong) Ki-67: overall less than 10-15% positive (nuclear/strong) Interpretation: Immunophenotype characteristic of CLL/SLL Technical Note: The immunohistochemistry stains reported were performed at [facility] ([address], [facility] [address]). They were developed and their performance characteristics determined by [employer] [facility]. They have not been cleared or approved by the U.S. Food and Drug Administration, although such approval is not required for analyte-specific reagents of this type. . 01 Pathologist provided ICD-10: C91.10 . 01 CPT . 870184, D89007, P18038, 857821 Performed at: [facility] [address], [place], [place] [id number] MD Gilles Ferrer MD Phone: [phone]
[2020-01-08 09:04] VITALS: BP 128/64; PULSE 73; RESP 16; TEMP 36.6; O2SAT 97; BMI 32.5
[2020-01-08 09:52] VITALS: BP 128/66; PULSE 69; RESP 17; O2SAT 99
[2020-01-08] MEDS: fentaNYL 100 MCG/2 ML INJ IV (10:03)
[2020-01-08 10:16] VITALS: BP 117/58; PULSE 69; RESP 16; O2SAT 99
[2020-01-08] MEDS: MIDAZOLAM 2 MG/2 ML VIAL 1 MG IV (10:17)
[2020-01-08 10:30] VITALS: BP 108/74; PULSE 70; RESP 16; TEMP 36.2; O2SAT 96
--- NOTE | 2020-01-08 10:38 | DI.CT.S_ITS ---
PROCEDURE: CT BIOPSY BONE DEEP Sedation analgesia for 30 minutes. INDICATIONS: Lytic bone lesions on MRI, PET, x-ray in patient with CLL TECHNIQUE: The indications, alternatives, benefits, risks, and possible complications of the procedure were communicated to the patient. Informed written consent from the patient was obtained and placed in the chart. Continuous EKG and hemodynamic monitoring was started by trained personnel. The patient was brought to the CT suite and wardrobe attendant spiral CT imaging was performed with localization grid. The appropriate site for percutaneous access to the biopsy target was marked, was prepped and draped sterilely, and was infused with local anaesthesia. Under CT guidance, a core biopsy trocar and needle set was advanced to the biopsy target, and specimen(s) were obtained. The trocar and needle were then removed, and the patient was sent for post-procedure monitoring. COMPARISON: [facility], MR, MR KNEE LT WO CON, 11/12/2019, 13:25. [facility], CR, XR BONE SURVEY, 12/25/2019, 15:56. FINDINGS: Biopsy site: Rounded osteolytic focus at the medial aspect of the anterior left metadiaphyseal junction, targeted to series 3, image 31. Needle: 18 gauge Temno biopsy needle with introducer trocar. Number of passes: 5 Medications: 1% lidocaine for local anaesthesia. IV Fentanyl and Versed for conscious sedation for 30 minutes (see nursing record). Complications: None. IMPRESSION: Successful CT-guided biopsy of marrow space through an osteolytic sharply demarcated anterior distal femoral 3 mm cortical defect into the marrow space. Marrow space ample is a were provided to the pathology department staff in formalin, as directed by the ordering healthcare provider. Dictated by: Cornelius Smith M.D. on 01/08/2020 at 11:07 Approved by: Cornelius Smith M.D. on 01/08/2020 at 11:17
--- NOTE | 2020-01-08 10:48 | SUR.PHASEII ---
1030 Patient received from Diagnostic imaging, s/p bone marrow biopsy to left knee area. Band aid in place, clean, dry and intact. VSS. Patient denies any pain or nausea at this time. Warm blankets provided. Ice water and crackers provided. Advised patient that she would be on bedrest for one hour and if stable at that time, patient would be discharged from PACU. V/U. Belongings at bedside and call light in reach.
--- NOTE | 2020-01-08 11:11 | SUR.PHASEII ---
1100 Patient resting quietly with eyes closed. No distress noted.
[2020-01-08 12:52] VITALS: BP 130/71; PULSE 75; RESP 16; TEMP 36.4; O2SAT 98
== END 2020-01-08 12:00 | disposition home or self-care (01) ==
PROVIDERS: PCP Physician Assistant; Referring Provider Physician Assistant; Visit Provider Internal Medicine
DX: C91.10 Chronic lymphocytic leukemia of B-cell type not having achieved remission (principal)
CPT/HCPCS: 20225; 77012; J2250; J3010

== ENCOUNTER → 2020-03-03 15:55 | Outpatient (CLI) | payer OTHER, MEDICARE, SELFPAY ==
[2020-03-03] MEDS: COVID-19 VACC #1, MRNA(MOD) 100 MCG/0.5 ML VIAL IM (16:01)
[2020-03-03] MEDS: COVID-19 VACC #2, MRNA(MOD) 100 MCG/0.5 ML VIAL IM (16:01)
== END ==
PROVIDERS: PCP Physician Assistant; Visit Provider Internal Medicine
DX: Z23 Encounter for immunization (principal)
CPT/HCPCS: 0011A; 0012A; 91301

== ENCOUNTER → 2020-03-31 15:47 | Outpatient (CLI) | payer OTHER, SELFPAY ==
[2020-03-31] MEDS: COVID-19 VACC #2, MRNA(MOD) 100 MCG/0.5 ML VIAL IM (15:54)
== END ==
PROVIDERS: PCP Physician Assistant; Visit Provider Internal Medicine
DX: Z23 Encounter for immunization (principal)
CPT/HCPCS: 0012A; 91301

== ENCOUNTER → 2020-06-22 16:52 | Outpatient (CLI) | payer OTHER, SELFPAY ==
[2020-06-22 17:51] LABS: Hematocrit 37.1 % (36-46); Mean Corpuscular HGB Conc 32.4 % (30-36); Mean Corpuscular Hemoglobin 31.5 PG (26-34); Mean Corpuscular Volume 97.1 fL (80-100); Platelet Count 171 X10^3/uL (150-400); Red Blood Cell Count 3.83 X10^6/uL (4.0-5.2); Red Cell Distribution Width 13.5 % (11.6-14.8)
[2020-06-22 18:05] LABS: Alanine Aminotransferase 16 IU/L (<35); Albumin Globulin Ratio 1.4 (1.0-2.8); Alkaline Phosphatase 76 U/L (38-126); Aspartate Aminotransferase 42 IU/L (14-36); BUN Creatinine Ratio 31.7 (6-22); Bilirubin Total 0.5 mg/dL (0.2-1.3); Blood Urea Nitrogen 20 mg/dL (7-17); Calcium 9.1 mg/dL (8.4-10.2); Carbon Dioxide 26 mmol/L (22-32); Chloride 105 mmol/L (98-107); Estimated Glomerular Filt Rate > 60.0 mL/min (>60); Globulin 2.8 g/dL (1.7-4.1); Glucose 74 mg/dL (80-110); HEMOLYSIS 22 (0-50); Potassium 4.2 mmol/L (3.4-5.1); Sodium 138 mmol/L (137-145); Total Protein 6.8 g/dL (6.3-8.2)
[2020-06-22 18:48] LABS: Add Manual Diff / Slide Review YES
[2020-06-22 19:18] LABS: Neutrophils Absolute Manual 5715 /uL (3000-5900); Total Cells Counted 100
[2020-06-22 19:19] LABS: Platelet Morphology Comment NOTE; RBC Morphology Normal Morphology; Smudge Cells 1+
[2020-06-22 19:22] LABS: White Blood Cell Count 114.3 X10^3/uL (4.5-11.0)
== END ==
PROVIDERS: PCP Physician Assistant; Referring Provider Internal Medicine; Visit Provider Internal Medicine
DX: C83.00 Small cell B-cell lymphoma, unspecified site (principal)
CPT/HCPCS: 36415; 80053; 85007; 85025

== ENCOUNTER → 2020-07-13 07:57 | Outpatient (CLI) | payer OTHER, SELFPAY ==
--- NOTE | 2020-07-13 08:00 | DI.RAD.S_ITS ---
PROCEDURE: XR FEMUR LT MIN 2V INDICATIONS: Follow-up CLL and lytic bone lesions TECHNIQUE: 2 views of the femur were acquired. COMPARISON: [facility], CR, XR BONE SURVEY, 12/25/2019, 15:56. [facility], CT, CT BIOPSY BONE DEEP, 01/08/2020, 9:22. FINDINGS: Bones: No fractures or dislocations. No definite new new suspicious bony lesions. There are several proximal femoral foci of rounded relatively sharply demarcated radiolucencies within the inter trochanteric and femoral neck regions, little if any change from the comparison bone survey performed 12/25/19. No definite new lesions have developed. Soft tissues: No suspicious soft tissue calcifications or masses. IMPRESSION: The sharply demarcated osteolytic bone lesions are again seen. These are in some cases less well or better visualized depending on the slight differences in rotation at the distal femur. At the proximal femur no new abnormality has developed. Several of the osteal lucent rounded cortical lesions seen at the distal femur appears slightly larger in caliber but this is considered more likely a manifestation of difference in rotation than true interval growth. Dictated by: Cornelius Smith M.D. on 07/13/2020 at 11:27 Approved by: Cornelius Smith M.D. on 07/13/2020 at 11:32
--- NOTE | 2020-07-13 08:00 | DI.RAD.S_ITS ---
PROCEDURE: XR FEMUR RT MIN 2V INDICATIONS: Follow-up CLL and lytic bone lesions TECHNIQUE: 4 views of the right femur were acquired. COMPARISON: [facility], CR, XR FEMUR LT MIN 2V, 07/13/2020, 8:08. [facility], CR, XR BONE SURVEY, 12/25/2019, 15:56. FINDINGS: Bones: No fractures or dislocations. No new suspicious bony lesions. The number, size and morphology of the sharply demarcated osteal lucent small bone lesions at the femoral neck and inter trochanteric area of the proximal right femur and also at the metadiaphyseal junction of the right distal femur have not changed from bone survey performed 12/25/19. Soft tissues: No suspicious soft tissue calcifications or masses. IMPRESSION: Stable appearance of scattered small sharply demarcated osteolytic bone lesions previously present 12/25/19. Dictated by: Cornelius Smith M.D. on 07/13/2020 at 11:23 Approved by: Cornelius Smith M.D. on 07/13/2020 at 11:27
--- NOTE | 2020-07-13 08:55 | DI.CT.S_ITS ---
PROCEDURE: CT CHEST ABD PEL W CON INDICATIONS: Follow-up CLL TECHNIQUE: After the administration of oral and intravenous contrast, axial sections acquired from the supraclavicular neck to the pubic symphysis. Coronal and sagittal reformats were performed. For radiation dose reduction, the following was used: automated exposure control, adjustment of mA and/or kV according to patient size. COMPARISON:[facility], [place], [place] PET CT FUSION WHOLE BODY, 12/10/2019, 17:06. [facility], [place], CT CHEST ABD PEL W CON, 03/21/2019, 10:47. FINDINGS: Image quality: Excellent. CHEST: Lower Neck: Occasional small supraclavicular lymph nodes are present. No bulky adenopathy is seen before. For example, left supraclavicular lymph node measures 8 mm in short axis, previously 11 mm. Thyroid: Within normal limits. Axillae: Numerous nonenlarged axillary lymph nodes are present. The largest left axillary lymph node has a fatty hilum and has decreased in size measuring 1.4 cm in short axis, previously 2.3 cm. Chest Wall: Unremarkable. Lungs and Airways: Mild right upper lobe paraseptal emphysematous changes and thin-walled cysts which are seen anteriorly. Resolution of posteromedial right lower lobe pneumonitis. There is a punctate subpleural right lateral lower lobe nodule which is stable, . Pleura: No pneumothorax or pleural effusions. Heart: Heart size is normal. No pericardial effusion. Thoracic Vessels: The aorta and pulmonary arteries demonstrate normal size. Mediastinum and Marisol: Nonenlarged mediastinal lymph nodes are seen. No hilar adenopathy. There is decrease in the subtle paraspinal soft tissue thickening seen around lower thoracic vertebral bodies, T9 through T11. Esophagus: No wall thickening. No hiatal hernia. ABDOMEN: Liver: Unremarkable. Gallbladder: Unremarkable. Biliary ducts: Unremarkable. Pancreas: Unremarkable. Spleen: Unremarkable. Adrenal Glands: Unremarkable. Kidneys and Ureters: Unremarkable. Stomach and Bowel: Stomach, small bowel loops, and colon are unremarkable. Increased quantity of solid stool present in the colon. Peritoneum: No abnormal intraperitoneal fluid. No free air. Ventral Wall: No hernia. Abdominal Nodes: Left periaortic adenopathy has decreased in size. 1 of the largest nodes immediately caudal to the left renal vein measures 1.0 cm in short axis, previously 1.4 cm a bulky lymph node in the portacaval region has decreased now measuring 1.8 cm, previously 2.8 cm. Vessels: Aorta and inferior vena cava are normal in size. PELVIS: Pelvic Organs: Uterus is surgically absent. Bladder: Unremarkable. Pelvic Nodes: Decreased size of bilateral iliac lymph nodes. A right common femoral node measures 1.6 cm in short axis, previously 2.9 cm. Miscellaneous: No inguinal hernias are seen. Bones: Bridging osteophytosis through the anterior lower thoracic spine and severe disc degeneration in the lumbar spine. IMPRESSION: 1. Interval decrease in size of adenopathy in the lower neck, chest, retroperitoneum, abdomen, and pelvis. 2. Interval resolution of mild right lung pneumonitis. 3. Decrease in the subtle paraspinal soft tissue thickening surrounding lower thoracic vertebral bodies. Dictated by: Sera Montgomery M.D. on 07/13/2020 at 9:44 Approved by: Sera Montgomery M.D. on 07/13/2020 at 10:10
== END ==
PROVIDERS: PCP Physician Assistant; Referring Provider Internal Medicine; Visit Provider Internal Medicine
DX: C83.00 Small cell B-cell lymphoma, unspecified site (principal); M89.552 Osteolysis, left thigh; M89.551 Osteolysis, right thigh
CPT/HCPCS: 71260; 73552; 74177

== ENCOUNTER → 2020-12-10 15:28 | Outpatient (CLI) | payer OTHER, SELFPAY ==
[2020-12-10] MEDS: COVID-19 VACC #3, MRNA(MOD) 50 MCG/0.25 ML VIAL IM (15:32)
== END ==
PROVIDERS: PCP Physician Assistant; Visit Provider Internal Medicine
DX: Z23 Encounter for immunization (principal)
CPT/HCPCS: 0013A; 91301

== ENCOUNTER → 2021-01-20 16:15 | Outpatient (CLI) | payer OTHER, SELFPAY ==
--- NOTE | 2021-01-20 | DI.MG.S_ITS ---
BILATERAL DIGITAL SCREENING MAMMOGRAM 3D/2D WITH CAD: 01/20/2021 CLINICAL: Routine screening. Comparison is made to exams dated: 11/24/2017 mammogram, 03/16/2014 mammogram, and 12/14/2009 mammogram - [facility]. The tissue of both breasts is heterogeneously dense. This may lower the sensitivity of mammography. Current study was also evaluated with a Computer Aided Detection (CAD) system. There are new grouped fine amorphous calcifications in the left breast at 1 o'clock middle depth. No other significant masses, calcifications, or other findings are seen in either breast. IMPRESSION: INCOMPLETE: NEEDS ADDITIONAL IMAGING EVALUATION The new grouped fine amorphous calcifications in the left breast are indeterminate. Magnification and lateral views as well as additional views with possible ultrasound are recommended. This exam was interpreted at Station ID: [id number]. NOTE: For mammograms, a report in lay terms will be sent to the patient. Approximately 15% of breast malignancies will not be visualized mammographically. In the management of a palpable breast mass, a negative mammogram must not discourage biopsy of a clinically suspicious lesion. Electronically Signed By: Sera correa/:01/20/2021 16:56:20 letter sent: Additional Imaging Needed ACR BI-RADS Category 0: Incomplete 3340F
== END ==
PROVIDERS: PCP Physician Assistant; Referring Provider Pediatrics; Visit Provider Physician Assistant
DX: Z12.31 Encounter for screening mammogram for malignant neoplasm of breast (principal)
CPT/HCPCS: 77063; 77067

== ENCOUNTER → 2021-02-25 12:43 | Outpatient (CLI) | payer OTHER, SELFPAY ==
--- NOTE | 2021-02-25 | DI.MG.S_ITS ---
UNILATERAL LEFT DIGITAL DIAGNOSTIC MAMMOGRAM 3D/2D WITH ADDITIONAL VIEWS: 02/25/2021 CLINICAL: Additional evaluation requested from prior study. Comparison is made to exams dated: 01/20/2021 mammogram, 11/24/2017 mammogram, and 03/16/2014 mammogram - [facility]. The tissue of left breast is heterogeneously dense. This may lower the sensitivity of mammography. There are new grouped fine pleomorphic calcifications in the left breast at 1 o'clock middle depth. No other significant masses or calcifications are seen in the breast. IMPRESSION: SUSPICIOUS OF MALIGNANCY The new grouped fine pleomorphic calcifications in the left breast are suspicious of malignancy. A stereotactic biopsy is recommended. This exam was interpreted at Station ID: [id number]. NOTE: For mammograms, a report in lay terms will be sent to the patient. Approximately 15% of breast malignancies will not be visualized mammographically. In the management of a palpable breast mass, a negative mammogram must not discourage biopsy of a clinically suspicious lesion. Electronically Signed By: Felix Kulkarni M.D., jr/linda:02/25/2021 13:28:18 letter sent: Biopsy Required ACR BI-RADS Category 4: Suspicious abnormality [id number]
== END ==
PROVIDERS: PCP Physician Assistant; Referring Provider Physician Assistant; Visit Provider Physician Assistant
DX: R92.8 Other abnormal and inconclusive findings on diagnostic imaging of breast (principal); R92.1 Mammographic calcification found on diagnostic imaging of breast
CPT/HCPCS: 76642; 76830; 77065; G0279

== ENCOUNTER → 2021-05-23 16:18 | Outpatient (CLI) | payer OTHER, SELFPAY ==
--- NOTE | 2021-05-23 16:20 | DI.RAD.S_ITS ---
PROCEDURE: XR ANKLE RT MIN 3V INDICATIONS: right ankle pain TECHNIQUE: 3 views of the ankle were acquired. COMPARISON: None. FINDINGS: Bones: No fractures or dislocations. Ankle mortise is normally aligned. No suspicious bony lesions. Calcaneal bone spurs. Midfoot osteoarthritis. Soft tissues: No tibiotalar joint effusion. Achilles tendon appears normal. Nonspecific soft tissue swelling is noted IMPRESSION: 1. No fracture. No acute osseous lesion. If symptoms and/or clinical suspicion for pathology persists, further assessment with repeat radiographs (7-10 days) or advanced imaging (e.g. CT, MRI or bone scan) should be considered. 2. Nonspecific soft tissue swelling. Dictated by: Melissa Adam MD, PhD on 05/23/2021 at 16:44 Approved by: Melissa Adam MD, PhD on 05/23/2021 at 16:45
== END ==
PROVIDERS: PCP Internal Medicine; Referring Provider Internal Medicine; Visit Provider Internal Medicine
DX: M19.071 Primary osteoarthritis, right ankle and foot (principal); M77.31 Calcaneal spur, right foot; M79.89 Other specified soft tissue disorders
CPT/HCPCS: 73610

== ENCOUNTER → 2021-08-02 18:48 | Outpatient (CLI) | payer OTHER, SELFPAY | PROVIDERS: PCP Internal Medicine; Visit Provider Physician Assistant | DX: R30.0 Dysuria (principal) | CPT/HCPCS: 87077; 87086; 87186 ==

== ENCOUNTER → 2021-08-22 15:08 | Outpatient (CLI) | payer OTHER, SELFPAY | PROVIDERS: PCP Internal Medicine; Referring Provider Internal Medicine; Visit Provider Internal Medicine | DX: N95.9 Unspecified menopausal and perimenopausal disorder (principal); M85.852 Other specified disorders of bone density and structure, left thigh; M85.851 Other specified disorders of bone density and structure, right thigh | CPT/HCPCS: 77080 ==

== ENCOUNTER 2021-09-10 22:44 | Emergency (ER) | payer OTHER, SELFPAY ==
[2021-09-10 22:52] VITALS: BP 160/69; PULSE 85; RESP 18; TEMP 36.2; O2SAT 95; BMI 30.9
--- NOTE | 2021-09-10 23:01 | ED_ITS ---
HPI - Female Genitourinary General Chief complaint: Urogenital-Female Stated complaint: UTI Time Seen by Provider: 09/10/21 22:50 Source: patient Mode of arrival: Ambulatory History of Present Illness HPI Narrative: 71-year-old female nonsmoker with history of hyperlipidemia, recent UTI, lymphoma on immunotherapy presents with UTI symptoms consisting of dysuria, frequency and urgency as well as hematuria. She has a history of urinary tract infections and states this feels reminiscent of prior her symptoms started earlier today at about noon of progressively worsened. She denies systemic findings such as nausea, vomiting nor fever or chills. She has no back pain. Related Data Home Medications Medication Instructions Recorded Confirmed cholecalciferol (vitamin D3) 25 1,000 unit PO DAILY 02/07/18 08/02/21 mcg (1,000 unit) capsule (Vitamin D3) [id number] 200 mcg-vit K 100 2 tab PO DAILY 02/07/18 08/02/21 mcg-lycop 500 [id number] capsule (Daily Multivitamin) progesterone micronized 100 mg 100 mg PO QAM 02/07/18 08/02/21 capsule estradiol 0.01% (0.1 mg/gram) 1 g 5XW 04/10/18 08/02/21 vaginal cream (Estrace) calcium carbonate 500 mg calcium 500 mg PO DAILY 01/08/20 08/02/21 (1,250 mg) tablet (Calcium 500) ferrous sulfate 325 mg (65 mg 325 mg PO DAILY 04/27/20 08/02/21 iron) tablet (iron) turmeric 400 mg capsule 400 mg PO DAILY 04/27/20 08/02/21 magnesium 500 mg tablet 500 mg PO DAILY 06/23/20 08/02/21 Previous Rx's Medication Instructions Recorded ibrutinib 420 mg tablet 420 mg PO DAILY #30 tabs 02/15/21 ibrutinib 140 mg capsule 420 mg PO DAILY #90 caps 02/16/21 (Imbruvica) allopurinol 100 mg tablet 200 mg PO DAILY #30 tabs 03/28/21 montelukast 10 mg tablet 10 mg PO QDAY #90 tabs 07/25/21 (Singulair) cephalexin 500 mg capsule 500 mg PO BID #10 caps 09/10/21 fluconazole 150 mg tablet 150 mg PO Q3D 2 doses #2 tabs 09/10/21 Allergies Allergy/AdvReac Type Severity Reaction Status Date / Time Penicillins Allergy Mild Nausea Verified 09/10/21 22:58 Sulfa (Sulfonamide Allergy Mild RASH Verified 09/10/21 22:58 Antibiotics) amoxicillin [From Augmentin] AdvReac Unknown nausea, Verified 09/10/21 22:58 fainted clavulanic acid AdvReac Unknown nausea, Verified 09/10/21 22:58 [From Augmentin] fainted Review of Systems Review of Systems Narrative: GENERAL: Denies chills, fatigue, malaise, fever, sweats. HEENT: Denies sinus pain, ear pain, sore throat, difficulty swallowing, dizziness. RESPIRATORY: Denies dyspnea, cough, wheezing, hemoptysis, sputum. CARDIOVASCULAR: Denies chest pain, palpitations, orthopnea, edema, GASTROINTESTINAL: Denies nausea, vomiting, abdominal pain, diarrhea, constipation, melena. : See HPI MUSCULOSKELETAL: denies weakness, joint pain, or bony pain SKIN: Denies rash, skin lesions, or other NEUROLOGIC: Denies weakness, headache, numbness, change in speech, confusion, seizures, incoordination. PSYCHIATRIC: No concerning psychosocial issues. 12 point review of systems is negative except for those stated above Patient History Medical History Asthma (~1955) Eczema (~1959) Left knee pain Measles Mumps (~1959) Osteoarthritis of left knee Surgical History Anesthesia History of hysterectomy (~1980) History of knee surgery (~2014) S/P biopsy (~2014) S/P tonsillectomy Family History Father Aneurysm Mother Lymph node cancer Grandmother History of heart disease Grandfather History of heart disease Grandmother Alzheimer's disease alcohol intake frequency: a few times a week Substance Use Type: does not use Exam Narrative Exam Narrative: GEN: AOx3 and in mild distress EYES: Pupils are equal, round, and reactive to light and accommodation. Extraoccular muscles are intact bilaterally. There is no subconjunctival hemorrhage or exudate. CHEST: Lungs are clear to auscultation bilaterally and free of wheezes, rales, or rhonchi. Heart rate is regular rhythm, there are no murmurs, clicks, rubs, or gallops. There is no chest wall tenderness. ABD: Abdomen is soft and mildly tender over the bladder. There is no guarding or rebound. Bowel sounds are normal in all 4 quadrants. There is no mass or organomegaly. BACK: no CVA tenderness EXT: Full painless ROM of all extremities with no loss of sensation or strength. SKIN: Warm, pink, and dry. No erythema or rash Initial Vital Signs Initial Vital Signs: Vital Signs Temperature 97.1 F L 09/10/21 22:52 Pulse Rate 85 09/10/21 22:52 Respiratory Rate 18 09/10/21 22:52 Blood Pressure 160/69 H 09/10/21 22:52 Pulse Oximetry 95 09/10/21 22:52 Oxygen Delivery Method 09/10/21 22:52 Course Orders Ordered: ED Orders 09/10/21 23:00 Urinalysis and Microscopic Stat Urine Culture Stat Discontinued Medications Cefazolin Sodium (Cephalexin 250 Mg Prepack) 1 bottle MISC SEEINSTR ONE Stop: 09/10/21 23:10 Last Admin: 09/10/21 23:23 Dose: 500 mg Documented By: BRIT Phenazopyridine HCl (Phenazopyridine 100 Mg Tablet) 200 mg PO NOW ONE Stop: 09/10/21 23:10 Last Admin: 09/10/21 23:22 Dose: 200 mg Documented By: BRIT Vital Signs Vital signs: Vital Signs - 8 hr 09/10/21 22:52 Temperature 97.1 F L Pulse Rate 85 Respiratory Rate 18 Blood Pressure 160/69 H Pulse Oximetry 95 Oxygen Delivery Method Room Air MDM - Female Genitourinary Lab Data Labs: Lab Results 09/10/21 Range/Units 23:00 Urine Color Red Urine Appearance Slightly cloudy Urine pH 7.0 (4.5-8.0) Ur Specific [place] 1.015 (1.000-1.035) Urine Protein 3+ H (Negative) Urine Glucose (UA) Negative (Negative) g/dL Urine Ketones Negative (NEGATIVE) Urine Occult Blood 3+ H (Negative) Urine Nitrate Negative (Negative) Urine Bilirubin Negative (NEGATIVE) Urine Urobilinogen 0.2 (0.2) E.U./dL Ur Leukocyte Esterase 2+ H (NEGATIVE) Urine RBC >100/hpf H (0-5/HPF) Urine WBC 5-10/hpf H (0-5/HPF) Ur Squamous Epith Cells 0-1 /hpf (0-5/HPF) Urine Bacteria Few (2-10) H (None) Ur Culture Indicated? Specimen cultured MDM Narrative Medical decision making narrative: Patient with classic complaints of urinary tract infection including dysuria, frequency, urgency and hematuria. She had a UTI about 1 month ago and states this feels the same. She has no systemic complaints or signs of sepsis. She states that she does occasionally get a yeast infection with antibiotics and I discussed with her that she could take Diflucan, but if doing so she would need to alter the dosing of her Imbruvica. She states that she would talk with her PCP about it but would likely just stick with [id number] medications. She is given return precautions and questions answered to her apparent satisfaction Discharge Plan Departure Patient Disposition: Home Clinical Impression: Urinary tract infection Instructions: DI for Urinary Tract Infection (UTI) Activity Restrictions/Additional Instructions: *You have been diagnosed with [urinary tract infection] *What to do: *If you develop a yeast infection and take the Diflucan (fluconazole) please decrease your Ibrutinib from 420mg daily to 280mg daily for 1 week. Otherwise take your medications as previously directed [ x] New medication prescriptions sent to your pharmacy: [ [facility]] [ ] New medication written as a paper prescription [ ] No new medications given *Please follow up with your primary care provider in 2-3 days, call for an appointment. Let them know you were seen in the Emergency Department and that we ask that you be seen in follow up. We will electronically transmit a record of today's note if your PCP is in our system *If you do not have a primary care provider please contact the [facility] Resource line at [phone]. They will ask some questions about your medical history and help get you set up with a doctor in the community. *Return to Emergency Department if you should have any new, worsening or concerning symptoms, such as [fever greater than 101 F, shaking chills, worsening pain, persistent vomiting or other bothersome symptoms] Prescriptions: New cephalexin 500 mg capsule 500 mg PO BID Qty: 10 0RF fluconazole 150 mg tablet 150 mg PO Q3D Qty: 2 0RF Rx Instructions: may repeat second dose 72 hrs after first dose if symptoms persist No Action montelukast [Singulair] 10 mg tablet 10 mg PO QDAY Qty: 90 3RF estradiol [Estrace] 0.01 % (0.1 mg/gram) Cream 1 g 5XW Rx Instructions: don't wednesdays and sundays, cream to inner wrist or stomach ferrous sulfate [iron] 325 mg (65 mg iron) Tablet 325 mg PO DAILY Label Comments: PT UNSURE OF DOSE-PT WILL VERIFY turmeric 400 mg Capsule 400 mg PO DAILY magnesium 500 mg Tablet 500 mg PO DAILY ibrutinib 420 mg Tablet 420 mg PO DAILY Qty: 30 5RF Rx Instructions: take at same time(s) each day; swallow whole with water; do not crush, chew, break, dissolve, cut, or open Imbruvica 140 mg Capsule 420 mg PO DAILY Qty: 90 5RF Rx Instructions: take 3-140mg capsules at same time each day; swallow whole with water; do not crush, chew, break, dissolve, cut, or open. allopurinol 100 mg Tablet 200 mg PO DAILY Qty: 30 5RF calcium carbonate [Calcium 500] 500 mg calcium (1,250 mg) Tablet 500 mg PO DAILY progesterone micronized 100 mg Capsule 100 mg PO QAM Label Comments: unknown dose; takes 5 days/week cholecalciferol (vitamin D3) [Vitamin D3] 1,000 unit Capsule 1,000 unit PO DAILY Label Comments: unknown dose Daily Multivitamin 200-100-500 mcg Capsule 2 tab PO DAILY Referrals: Redd Martinez MD [Primary Care Provider] - Visit Report Forms: Patient Portal/API
[2021-09-10 23:15] LABS: Bilirubin Urine UA NEGATIVE (NEGATIVE); Glucose Urine UA NEGATIVE (Negative); Ketones Urine UA NEGATIVE (NEGATIVE); Leukocyte Esterase Urine UA 2+ (NEGATIVE); Nitrite Urine UA NEGATIVE (Negative); Occult Blood Urine UA 3+ (Negative); Protein Urine UA 3+ (Negative); Specific Gravity Urine UA 1.015 (1.000-1.035); Urobilinogen Urine UA 0.2 E.U./dL (0.2)
[2021-09-10 23:16] LABS: Appearance Urine UA Slightly Cloudy; Color Urine UA RED
[2021-09-10 23:17] LABS: Bacteria Urine Few (2-10); RBC Urine >100/HPF (0-5/HPF); Squamous Epithelial Cell Urine 0-1 /HPF (0-5/HPF); WBC Urine 5-10/HPF (0-5/HPF)
[2021-09-10 23:18] LABS: Culture Indicated Urine Specimen Cultured
[2021-09-10] MEDS: PHENAZOPYRIDINE 100 MG TABLET 200 MG PO (23:22)
[2021-09-10] MEDS: cephALEXin 250 MG PREPACK 1 BOTTLE MISC (23:23)
== END 2021-09-10 23:31 | disposition home or self-care (01) ==
PROVIDERS: Emergency Provider Emergency Medicine; PCP Internal Medicine
DX: N39.0 Urinary tract infection, site not specified (principal)
CPT/HCPCS: 81001; 87077; 87086; 87186; 99283

== ENCOUNTER 2022-03-17 10:41 | Emergency (ER) | payer OTHER, SELFPAY ==
[2022-03-17 11:08] VITALS: BP 157/73; PULSE 54; RESP 16; TEMP 36.5; O2SAT 98; BMI 32.3
[2022-03-17] MEDS: TET,DIPH,PERTUSS(ACELL),VAC/PF 0.5 ML SYRINGE IM (13:23)
--- NOTE | 2022-03-17 13:27 | ED_ITS ---
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 She states it persistently bled for about an hours so she came into the emergency department. She states she is on immunosuppressant drugs. Denies any other complaints or concerns. Related Data Home Medications Medication Instructions Recorded Confirmed cholecalciferol (vitamin D3) 25 1,000 unit PO DAILY 02/07/18 09/21/21 mcg (1,000 unit) capsule (Vitamin D3) [id number] 200 mcg-vit K 100 2 tab PO DAILY 02/07/18 09/21/21 mcg-lycop 500 [id number] capsule (Daily Multivitamin) calcium carbonate 500 mg calcium 500 mg PO DAILY 01/08/20 09/21/21 (1,250 mg) tablet (Calcium 500) ferrous sulfate 325 mg (65 mg 325 mg PO DAILY 04/27/20 09/21/21 iron) tablet (iron) turmeric 400 mg capsule 400 mg PO DAILY 04/27/20 09/21/21 magnesium 500 mg tablet 500 mg PO DAILY 06/23/20 09/21/21 Previous Rx's Medication Instructions Recorded montelukast 10 mg tablet 10 mg PO QDAY #90 tabs 07/25/21 (Singulair) estradiol 0.01% (0.1 mg/gram) 1 g vaginal 3XW #42.5 grams 09/16/21 vaginal cream (Estrace) progesterone micronized 100 mg 100 mg PO QAM #90 caps 09/16/21 capsule rosuvastatin 10 mg tablet 10 mg PO DAILY #90 tabs 09/16/21 ibrutinib 140 mg capsule 420 mg PO DAILY #90 caps 02/15/22 (Imbruvica) Allergies Allergy/AdvReac Type Severity Reaction Status Date / Time Penicillins Allergy Mild Nausea Verified 03/17/22 11:08 Sulfa (Sulfonamide Allergy Mild RASH Verified 03/17/22 11:08 Antibiotics) amoxicillin [From Augmentin] AdvReac Unknown nausea, Verified 03/17/22 11:08 fainted clavulanic acid AdvReac Unknown nausea, Verified 03/17/22 11:08 [From Augmentin] fainted Review of Systems <Gabriela Kelley PA-C - Last Filed: 03/17/22 13:38> Review of Systems Narrative: Unremarkable except as noted in the HPI Patient History <Gabriela Kelley PA-C - Last Filed: 03/17/22 13:38> Medical History Advanced directives, counseling/discussion Asthma (~1954) Eczema (~1959) Measles Medicare annual wellness visit, initial Mumps (~1959) Osteoarthritis of left knee Osteopenia Ovarian cyst (~1980) Recurrent sinusitis Skin cancer Wears glasses Surgical History Anesthesia History of hysterectomy (~1980) History of knee surgery (~2014) S/P biopsy (~2014) S/P tonsillectomy Family History Father Aneurysm Mother Lymph node cancer Grandmother History of heart disease Grandfather History of heart disease Grandmother Alzheimer's disease Grandfather History of heart disease Social History details: Single, formerly , former [employer], owns [employer], one son household members: none Smoking Status: Never smoker alcohol intake: current Smoking Status: Never smoker alcohol intake frequency: a few times a week Substance Use Type: does not use Exam <Gabriela Kelley PA-C - Last Filed: 03/17/22 13:38> Narrative Exam Narrative: GENERAL: 71 year old patient appears stated age. Well-developed patient, in mild distress. HEAD: Atraumatic. Normocephalic. EYES: Pupils equal round and reactive. Extraocular motions intact. No scleral icterus. No injection or drainage. ENT: Nose without bleeding, purulent drainage. Airway patent. NECK: Trachea midline. Non tender CARDIOVASCULAR: Regular rate and rhythm without murmurs, gallops, or rubs. RESPIRATORY: No increased work of breathing or respiratory distress EXTREMITIES: No edema or joint tenderness. BACK: Nontender without deformity or crepitance. No flank tenderness. NEURO: AOx3. SKIN: There is an approximately 1 cm x 0.5 cm avulsion it is nearly full- thickness on the pad of the left thumb. Does not affect the joint. Range of motion of the affected digit is intact, sensation is intact. The area bleeds slightly with manipulation but otherwise bleeding is controlled. No rash or erythema of visible areas Initial Vital Signs Initial Vital Signs: Vital Signs Temperature 97.7 F 03/17/22 11:08 Pulse Rate 54 L 03/17/22 11:08 Respiratory Rate 16 03/17/22 11:08 Blood Pressure 157/73 H 03/17/22 11:08 Pulse Oximetry 98 03/17/22 11:08 Oxygen Delivery Method 03/17/22 11:08 <Beverley Burkett DO - Last Filed: 03/17/22 18:53> Initial Vital Signs Initial Vital Signs: Vital Signs Temperature 97.7 F 03/17/22 11:08 Pulse Rate 54 L 03/17/22 11:08 Respiratory Rate 16 03/17/22 11:08 Blood Pressure 157/73 H 03/17/22 11:08 Pulse Oximetry 98 03/17/22 11:08 Oxygen Delivery Method 03/17/22 11:08 Procedures <Gabriela Kelley PA-C - Last Filed: 03/17/22 13:38> Laceration Repair Laceration 1: Time of procedure: 13:20 Site: hand (left thumb pad) Side (If applicable): left Size (cm): 1 Description: other (avulsed skin, not suturable) Pre-repair: cleansed with chlorhexadine Skin layer closed with: other (surgicel and sterile gauze/coban wrap) Technique: other (surgicel dressing applied) Course <WILMER Rangel Last Filed: 03/17/22 13:38> Orders Ordered: Discontinued Medications Diphtheria/Tetanus/Acell Pertussis (Tet,Diph,Pertuss(Acell),Vac/Pf 0.5 Ml Syringe) 0.5 ml IM .ONCE ONE Stop: 03/17/22 13:22 Last Admin: 03/17/22 13:23 Dose: 0.5 ml Documented By: KLS Vital Signs Vital signs: Vital Signs - 8 hr 03/17/22 11:08 Temperature 97.7 F Pulse Rate 54 L Respiratory Rate 16 Blood Pressure 157/73 H Pulse Oximetry 98 Oxygen Delivery Method Room Air <Beverley Burkett DO - Last Filed: 03/17/22 18:53> Orders Ordered: Discontinued Medications Diphtheria/Tetanus/Acell Pertussis (Tet,Diph,Pertuss(Acell),Vac/Pf 0.5 Ml Syringe) 0.5 ml IM .ONCE ONE Stop: 03/17/22 13:22 Last Admin: 03/17/22 13:23 Dose: 0.5 ml Documented By: KLS Vital Signs Vital signs: Vital Signs - 8 hr 03/17/22 11:08 Temperature 97.7 F Pulse Rate 54 L Respiratory Rate 16 Blood Pressure 157/73 H Pulse Oximetry 98 Oxygen Delivery Method Room Air MDM - Wound/Laceration <Gabriela Kelley PA-C - Last Filed: 03/17/22 13:38> Differential Diagnosis Differential diagnosis: Likely laceration and avulsion of skin Medical Records Medical records narrative: I have reviewed the patient's medical records. 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 Concerned due to persistent bleeding for about 1 hour. Patient has no signs of significant blood loss, labs are not obtained, the wound itself is not suggestive of deeper injury at it is is it is not completely through full-thickness and mechanism is not suggestive of bony or tendon damage. Her range of motion is intact and sensation is intact. The wound is cleansed with chlorhexidine and bandaged with Surgicel dressing as above and procedures patient is advised regarding monitoring for infection, keeping the area clean and dry for the next 1-2 days. May apply topical antibiotic ointment after that. Return precautions provided, follow-up plan discussed, all questions answered. Discharge Plan Departure Patient Disposition: Home Clinical Impression: Avulsion of skin of thumb Instructions: DI for Minor Laceration Activity Restrictions/Additional Instructions: Thank you for letting us be part of your care today in the emergency department. You sustained an avulsion to your thumb which bled for a while after it occurred, and it was bandaged today with a blood-soaked upper surgical dressing. You should keep the area dry for the next 1-2 days you may remove the dressing after that, do not leave it on for more than about 48 hours. Monitor for signs of infection. You may use topical antibiotic ointment after this will have to heal from the inside out as it was not amenable to sutures. There is no evidence of an emergent or life threatening illness at this time, but follow up with your doctor in 5-10 days if you have concern it is not feeling, or sooner if you have concern for infection. Please call the office for an appointment. Please return to the Emergency Department for any worsening or persistent symptoms. Please take medications as directed. Prescriptions: No Action montelukast [Singulair] 10 mg tablet 10 mg PO QDAY Qty: 90 3RF progesterone micronized 100 mg capsule 100 mg PO QAM Qty: 90 3RF estradiol [Estrace] 0.01 % (0.1 mg/gram) cream 1 g vaginal 3XW Qty: 42.5 3RF rosuvastatin 10 mg tablet 10 mg PO DAILY Qty: 90 3RF ferrous sulfate [iron] 325 mg (65 mg iron) Tablet 325 mg PO DAILY Label Comments: PT UNSURE OF DOSE-PT WILL VERIFY turmeric 400 mg Capsule 400 mg PO DAILY magnesium 500 mg Tablet 500 mg PO DAILY Imbruvica 140 mg Capsule 420 mg PO DAILY Qty: 90 5RF Rx Instructions: take 3-140mg capsules at same time each day; swallow whole with water; do not crush, chew, break, dissolve, cut, or open. calcium carbonate [Calcium 500] 500 mg calcium (1,250 mg) Tablet 500 mg PO DAILY cholecalciferol (vitamin D3) [Vitamin D3] 1,000 unit Capsule 1,000 unit PO DAILY Label Comments: unknown dose Daily Multivitamin 200-100-500 mcg Capsule 2 tab PO DAILY Referrals: Redd Martinez MD [Primary Care Provider] - Stand Alone Forms: Patient Portal/API <Beverley Burkett DO - Last Filed: 03/17/22 18:53> Cosign ED Attending Cosignature Attestation: I was immediately available in the department for consultation. Documentation has been reviewed.
== END 2022-03-17 13:56 | disposition home or self-care (01) ==
PROVIDERS: Emergency Provider Student in an Organized Health Care Education/Training Program; PCP Internal Medicine
DX: S61.012A Laceration without foreign body of left thumb without damage to nail, initial encounter (principal); W26.9XXA Contact with unspecified sharp object(s), initial encounter; Z23 Encounter for immunization
CPT/HCPCS: 12001; 90471; 99283; 90715

== ENCOUNTER 2022-04-14 15:16 | Emergency (ER) | payer OTHER, SELFPAY ==
[2022-04-14] VITALS (17 sets, daily range): BP systolic 136–174; BP diastolic 60–80; PULSE 55–73; RESP 15–41; TEMP 36.4; O2SAT 96–99; BMI 32.7
--- NOTE | 2022-04-14 15:32 | DI.RAD.S_ITS ---
PROCEDURE: XR CHEST 1V INDICATIONS: chest pain TECHNIQUE: One view of the chest was acquired. COMPARISON: [facility], , CHEST 2 VIEW, 04/02/2014, 13:04. FINDINGS: Surgical changes and devices: None. Lungs and pleura: Lungs are clear. No pleural effusions or pneumothorax. Mediastinum: Mediastinal contours appear normal. Heart size is normal. Bones and chest wall: No suspicious bony lesions. Overlying soft tissues appear unremarkable. IMPRESSION: Normal for age, source of current chest pain symptoms is not seen. Dictated by: Cornelius Smith M.D. on 04/14/2022 at 16:16 Approved by: Cornelius Smith M.D. on 04/14/2022 at 16:16
[2022-04-14 15:41] LABS: Add Manual Diff / Slide Review NO; Basophils Absolute Auto 100 /uL (0-100); Basophils Percent Auto 0.9 % (0-2); Eosinophils Absolute Auto 0 /uL (0-450); Eosinophils Percent Auto 0.4 % (2-4); Hematocrit 39.5 % (36-46); Hemoglobin 13.1 g/dL (12.0-16.0); Lymphocytes Absolute Auto 3200 /uL (1100-4500); Lymphocytes Percent Auto 36.9 % (25-40); Mean Corpuscular HGB Conc 33.2 % (30-36); Mean Corpuscular Volume 93.3 fL (80-100); Monocytes Absolute Auto 600 /uL (0-900); Monocytes Percent Auto 7.4 % (3-14); Neutrophils Absolute Auto 4600 /uL (1500-7000); Neutrophils Percent Auto 54.4 % (50-75); Platelet Count 179 X10^3/uL (150-400); Red Blood Cell Count 4.23 X10^6/uL (4.0-5.2); White Blood Cell Count 8.5 X10^3/uL (4.5-11.0)
[2022-04-14 15:44] LABS: PTT Partial Thromboplastin Tim 33 SECONDS (26-36)
[2022-04-14 15:50] LABS: Alanine Aminotransferase 19 IU/L (<35); Albumin 4.6 g/dL (3.5-5.0); Albumin Globulin Ratio 1.6 (1.0-2.8); Alkaline Phosphatase 67 U/L (38-126); Aspartate Aminotransferase 28 IU/L (14-36); Bilirubin Total 0.9 mg/dL (0.2-1.3); Blood Urea Nitrogen 20 mg/dL (7-17); Calcium 9.3 mg/dL (8.4-10.2); Carbon Dioxide 28 mmol/L (22-32); Chloride 103 mmol/L (98-107); Creatine Kinase 106 U/L (30-135); Estimated Glomerular Filt Rate > 60 mL/min (>60); Globulin 2.8 g/dL (1.7-4.1); Glucose 96 mg/dL (80-110); HEMOLYSIS < 15 (0-50); Lipase 78 U/L (23-300); Magnesium 2.1 mg/dL (1.6-2.3); Sodium 137 mmol/L (137-145); Total Protein 7.4 g/dL (6.3-8.2)
[2022-04-14 16:02] LABS: Troponin I < 0.012 ng/mL (0.01-0.034)
[2022-04-14 16:05] LABS: CKMB % Relative Index 1.3 % (1.5-5.0); Creatine Kinase MB 1.41 ng/mL (<2.37)
--- NOTE | 2022-04-14 18:07 | ED.SYNCOPE ---
HPI - Syncope General Chief Complaint: Syncope Stated Complaint: Near Syncope Time Seen by Provider: 04/14/22 18:02 Source: patient and EMS Mode of arrival: EMS History of Present Illness HPI narrative: 71-year-old female nonsmoker with history of lymphoma and asthma presents with 2 dizzy or near syncopal episodes that happened while at physical therapy earlier today. She states both of them were when she was changing physician and had gone from lying to a seated position. She states that she did not feel like she using a passed out as much as she began listing to 1 side or the other and felt as if she may fall. She never did fall though on the 2nd occasion she was assisted to the ground by her physical therapist. She denies any spinning sensation or lightheadedness. She is had no change in medications or diet. She denies any recent trauma or head injury. She is had no runny nose, sneezing or cough and denies ear pain or fullness. She is had no chest pain or shortness of breath. She denies nausea, vomiting or diarrhea. She is had no urinary complaints. She denies blurred or double vision and has no trouble with speech or extremity numbness, tingling or weakness Related Data Home Medications Medication Instructions Recorded Confirmed cholecalciferol (vitamin D3) 25 1,000 unit PO DAILY 02/07/18 04/07/22 mcg (1,000 unit) capsule (Vitamin D3) [id number] 200 mcg-vit K 100 2 tab PO DAILY 02/07/18 04/07/22 mcg-lycop 500 [id number] capsule (Daily Multivitamin) calcium carbonate 500 mg calcium 500 mg PO DAILY 01/08/20 04/07/22 (1,250 mg) tablet (Calcium 500) ferrous sulfate 325 mg (65 mg 325 mg PO DAILY 04/27/20 04/07/22 iron) tablet (iron) turmeric 400 mg capsule 400 mg PO DAILY 04/27/20 04/07/22 magnesium 500 mg tablet 500 mg PO DAILY 06/23/20 04/07/22 latanoprost 0.005 % eye drops 1 drp EYE-BOTH DAILY 04/07/22 04/07/22 Previous Rx's Medication Instructions Recorded montelukast 10 mg tablet 10 mg PO QDAY #90 tabs 07/25/21 (Singulair) estradiol 0.01% (0.1 mg/gram) 1 g vaginal 3XW #42.5 grams 09/16/21 vaginal cream (Estrace) progesterone micronized 100 mg 100 mg PO QAM #90 caps 09/16/21 capsule rosuvastatin 10 mg tablet 10 mg PO DAILY #90 tabs 09/16/21 ibrutinib 140 mg capsule 420 mg PO DAILY #90 caps 02/15/22 (Imbruvica) Allergies Allergy/AdvReac Type Severity Reaction Status Date / Time Penicillins Allergy Mild Nausea Verified 04/14/22 15:27 Sulfa (Sulfonamide Allergy Mild RASH Verified 04/14/22 15:27 Antibiotics) amoxicillin [From Augmentin] AdvReac Unknown nausea, Verified 04/14/22 15:27 fainted clavulanic acid AdvReac Unknown nausea, Verified 04/14/22 15:27 [From Augmentin] fainted Review of Systems Review of Systems Narrative: GENERAL: See HPI HEENT: Denies sinus pain, ear pain, sore throat, difficulty swallowing, dizziness. RESPIRATORY: Denies dyspnea, cough, wheezing, hemoptysis, sputum. CARDIOVASCULAR: See HPI GASTROINTESTINAL: Denies nausea, vomiting, abdominal pain, diarrhea, constipation, melena. : Denies dysuria, frequency, incontinence, hematuria, urinary retention. MUSCULOSKELETAL: denies weakness, joint pain, or bony pain SKIN: Denies rash, skin lesions, or other NEUROLOGIC: See HPI PSYCHIATRIC: No concerning psychosocial issues. 12 point review of systems is negative except for those stated above Patient History Medical History Advanced directives, counseling/discussion Asthma (~1954) Eczema (~1959) Measles Medicare annual wellness visit, initial Mumps (~1959) Osteoarthritis of left knee Osteopenia Ovarian cyst (~1980) Recurrent sinusitis Skin cancer Wears glasses Surgical History Anesthesia History of hysterectomy (~1980) History of knee surgery (~2014) S/P biopsy (~2014) S/P tonsillectomy Family History Father Aneurysm Mother Lymph node cancer Grandmother History of heart disease Grandfather History of heart disease Grandmother Alzheimer's disease Grandfather History of heart disease Social History details: Single, formerly , former [employer], owns [employer], one son household members: none Smoking Status: Never smoker alcohol intake: current Smoking Status: Never smoker alcohol intake frequency: a few times a week Substance Use Type: does not use Exam Narrative Exam Narrative: GENERAL: [71] year old patient appears stated age. Well-developed patient, in mild distress. HEAD: Atraumatic. Normocephalic. EYES: Pupils equal round and reactive. Extraocular motions intact. No scleral icterus. No injection or drainage. No reproducible nystagmus ENT: Nose without bleeding, purulent drainage. Throat without erythema, tonsillar hypertrophy or exudate. Airway patent. NECK: Trachea midline. Non tender CARDIOVASCULAR: Regular rate and rhythm without murmurs, gallops, or rubs. RESPIRATORY: Clear to auscultation. Breath sounds equal bilaterally. No wheezes, rales, or rhonchi. GASTROINTESTINAL: Abdomen soft, non-tender, nondistended. EXTREMITIES: No edema or joint tenderness. BACK: Nontender without deformity or crepitance. No flank tenderness. NEURO: AOx3. SKIN: No rash or erythema of visible areas NIH Stroke Scale 1a. LOC: Patient is alert and keenly responsive (0) 1b. LOC Questions: Patient answers both LOC questions accurately (0) 1c. LOC Commands: Patient performs both tasks correctly (0) 2. Best Gaze: Normal (0) 3. Visual: No visual loss (0) 4. Facial palsy: Normal symmetrical movements (0) 5. Motor arm: No drift (0) 6. Motor leg: No drift (0) 7. Limb ataxia: Absent (0) 8. Sensory: Normal (0) 9. Best language: No aphasia; normal (0) 10. Dysarthria: Normal (0) 11. Extinction and inattention: No abnormality (0) NIHSS: 0 Initial Vital Signs Initial Vital Signs: Vital Signs Pulse Rate 73 04/14/22 15:27 Respiratory Rate 18 04/14/22 15:27 Blood Pressure 174/80 H 04/14/22 15:27 Pulse Oximetry 97 04/14/22 15:27 Oxygen Delivery Method Room Air 04/14/22 15:27 Course Orders Ordered: ED Orders 04/14/22 18:40 CT head/brain wo con Stat 04/14/22 18:54 Urine Microscopic Stat Discontinued Medications Aspirin (Aspirin 81 Mg Chew Tab) 324 mg PO NOW ONE Stop: 04/14/22 15:33 Last Admin: 04/14/22 19:58 Dose: Not Given Documented By: SUE Sodium Chloride (Normal Saline 0.9%) 1,000 mls @ 1,000 mls/hr IV BOLUS ONE Stop: 04/14/22 19:39 Last Infusion: 04/14/22 20:39 Dose: 0 mls/hr Documented By: Admin: 04/14/22 19:20 Dose: 1,000 mls/hr Documented By: SUE Meclizine HCl (Meclizine Hcl 12.5 Mg Tablet) 50 mg PO NOW ONE Stop: 04/14/22 18:41 Last Admin: 04/14/22 19:20 Dose: 50 mg Documented By: SUE Vital Signs Vital signs: Vital Signs - 8 hr 04/14/22 18:30 04/14/22 18:30 04/14/22 19:08 Pulse Rate 64 57 L Pulse Rate [Orthostatic Lying] Pulse Rate [Orthostatic Sitting] Pulse Rate [Orthostatic Standing] Respiratory Rate 25 H 30 H Blood Pressure 137/64 Blood Pressure [Orthostatic Lying] Blood Pressure [Orthostatic Sitting] Blood Pressure [Orthostatic Standing] Pulse Oximetry 97 97 04/14/22 19:30 04/14/22 20:00 04/14/22 20:30 Pulse Rate 58 L 65 65 Pulse Rate [Orthostatic Lying] Pulse Rate [Orthostatic Sitting] Pulse Rate [Orthostatic Standing] Respiratory Rate 17 41 H 28 H Blood Pressure Blood Pressure [Orthostatic Lying] Blood Pressure [Orthostatic Sitting] Blood Pressure [Orthostatic Standing] Pulse Oximetry 96 97 98 04/14/22 20:32 04/14/22 20:32 04/14/22 20:35 Pulse Rate 71 Pulse Rate [Orthostatic Lying] Pulse Rate [Orthostatic Sitting] Pulse Rate [Orthostatic Standing] Respiratory Rate 22 Blood Pressure 153/67 H 169/73 H Blood Pressure [Orthostatic Lying] Blood Pressure [Orthostatic Sitting] Blood Pressure [Orthostatic Standing] Pulse Oximetry 98 04/14/22 20:35 04/14/22 20:36 04/14/22 20:36 Pulse Rate 70 67 Pulse Rate [Orthostatic Lying] Pulse Rate [Orthostatic Sitting] Pulse Rate [Orthostatic Standing] Respiratory Rate 20 Blood Pressure 164/76 H Blood Pressure [Orthostatic Lying] Blood Pressure [Orthostatic Sitting] Blood Pressure [Orthostatic Standing] Pulse Oximetry 04/14/22 20:43 Pulse Rate Pulse Rate [Orthostatic Lying] 67 Pulse Rate [Orthostatic Sitting] 68 Pulse Rate [Orthostatic Standing] 71 Respiratory Rate Blood Pressure Blood Pressure [Orthostatic Lying] 153/67 H Blood Pressure [Orthostatic Sitting] 169/73 H Blood Pressure [Orthostatic Standing] 164/76 H Pulse Oximetry MDM - Syncope Lab Data 04/14/22 15:17 04/14/22 15:17 Labs: Lab Results 04/14/22 04/14/22 04/14/22 Range/Units 15:17 15:17 15:17 WBC 8.5 (4.5-11.0) X10^3/uL RBC 4.23 (4.0-5.2) X10^6/uL Hgb 13.1 (12.0-16.0) g/dL Hct 39.5 (36-46) % MCV 93.3 (80-100) fL MCH 31.0 (26-34) PG MCHC 33.2 (30-36) % RDW 13.0 (11.6-14.8) % Plt Count 179 (150-400) X10^3/uL Neut % (Auto) 54.4 (50-75) % Lymph % (Auto) 36.9 (25-40) % Ogle % (Auto) 7.4 (3-14) % Eos % (Auto) 0.4 L (2-4) % Baso % (Auto) 0.9 (0-2) % Neut # (Auto) 4600 (1205-6502) /uL Lymph # (Auto) 3200 (8400-9771) /uL Ogle # (Auto) 600 (0-900) /uL Eos # (Auto) 0 (0-450) /uL Baso # (Auto) 100 (0-100) /uL PT 11.0 (10.1-12.7) SECONDS INR 1.0 (0.9-1.3) APTT 33 (26-36) SECONDS Sodium 137 (137-145) mmol/L Potassium 4.0 (3.4-5.1) mmol/L Chloride 103 (98-107) mmol/L Carbon Dioxide 28 (22-32) mmol/L BUN 20 H (7-17) mg/dL Creatinine 0.77 (0.52-1.04) mg/dL Estimated GFR > 60 (>60) mL/min BUN/Creatinine Ratio 26.0 H (6-22) Glucose 96 (80-110) mg/dL Calcium 9.3 (8.4-10.2) mg/dL Magnesium 2.1 (1.6-2.3) mg/dL Total Bilirubin 0.9 (0.2-1.3) mg/dL AST 28 (14-36) IU/L ALT 19 (<35) IU/L Alkaline Phosphatase 67 (38-126) U/L Total Creatine Kinase 106 (30-135) U/L CK-MB (CK-2) 1.41 (<2.37) ng/mL CK-MB (CK-2) Rel Index 1.3 L (1.5-5.0) % Troponin I < 0.012 (0.01-0.034) ng/mL Total Protein 7.4 (6.3-8.2) g/dL Albumin 4.6 (3.5-5.0) g/dL Globulin 2.8 (1.7-4.1) g/dL Albumin/Globulin Ratio 1.6 (1.0-2.8) Lipase 78 (23-300) U/L Urine RBC (0-5/HPF) Urine WBC (0-5/HPF) Ur Squamous Epith Cells (0-5/HPF) Urine Bacteria (None) Ur Culture Indicated? 04/14/22 Range/Units 18:54 WBC (4.5-11.0) X10^3/uL RBC (4.0-5.2) X10^6/uL Hgb (12.0-16.0) g/dL Hct (36-46) % MCV (80-100) fL MCH (26-34) PG MCHC (30-36) % RDW (11.6-14.8) % Plt Count (150-400) X10^3/uL Neut % (Auto) (50-75) % Lymph % (Auto) (25-40) % Ogle % (Auto) (3-14) % Eos % (Auto) (2-4) % Baso % (Auto) (0-2) % Neut # (Auto) (3171-4424) /uL Lymph # (Auto) (1036-0563) /uL Ogle # (Auto) (0-900) /uL Eos # (Auto) (0-450) /uL Baso # (Auto) (0-100) /uL PT (10.1-12.7) SECONDS INR (0.9-1.3) APTT (26-36) SECONDS Sodium (137-145) mmol/L Potassium (3.4-5.1) mmol/L Chloride (98-107) mmol/L Carbon Dioxide (22-32) mmol/L BUN (7-17) mg/dL Creatinine (0.52-1.04) mg/dL Estimated GFR (>60) mL/min BUN/Creatinine Ratio (6-22) Glucose (80-110) mg/dL Calcium (8.4-10.2) mg/dL Magnesium (1.6-2.3) mg/dL Total Bilirubin (0.2-1.3) mg/dL AST (14-36) IU/L ALT (<35) IU/L Alkaline Phosphatase (38-126) U/L Total Creatine Kinase (30-135) U/L CK-MB (CK-2) (<2.37) ng/mL CK-MB (CK-2) Rel Index (1.5-5.0) % Troponin I (0.01-0.034) ng/mL Total Protein (6.3-8.2) g/dL Albumin (3.5-5.0) g/dL Globulin (1.7-4.1) g/dL Albumin/Globulin Ratio (1.0-2.8) Lipase (23-300) U/L Urine RBC 5-10/hpf H (0-5/HPF) Urine WBC 0-1/hpf (0-5/HPF) Ur Squamous Epith Cells 0-1 /hpf (0-5/HPF) Urine Bacteria None seen (None) Ur Culture Indicated? Cult not indicated Urine Dip Bedside Urine Glucose Negative Bedside Urine Bilirubin - Negative Bedside Urine Ketone - Negative Urine Specific Harrison 1.010 Bedside Urine Occult Blood + Bedside Urine pH 6.0 Bedside Urine Protein - Negative Bedside Urine Urobilinogen - Negative Bedside Urine Nitrite - Negative Bedside Urine Leukocytes - Negative Esterase ECG Data Interpretation: [1536] EKG is normal sinus rhythm rate [65 ] and free of any signs of ischemia or ectopy. No ST segmental elevation or depression. No T wave inversions MDM Narrative Medical decision making narrative: CC: 71-year-old female with dizziness, ataxia versus near-syncope Complicating co-morbidities: Age, lipidemia, lymphoma Data collected from: Patient Medical records reviewed: Prior notes reviewed in our EMR Differential considered, but not limited to: Dehydration, peripheral vertigo, stroke, cardiac versus other Exam documented above, pertinent findings include: Normal NIH, no reproducible nystagmus, heart rate regular, lungs clear, abdomen soft, moist mucous membranes Lab Test results independently reviewed as above. Pertinent findings: No leukocytosis or left shift, no evidence of anemia, normal electrolytes and renal function, normal LFTs, normal cardiac enzymes Independently reviewed EKG as above Imaging studies independently reviewed: Chest x-ray normal for age. Head CT notes Scores Used:NIHSS Treatments: Fluids, Meclizine Re-evaluations: Significant improvement. Able to ambulate a full lab through the department, walking a straight line. Orthostatics unremarkable Discussion: Patient with 2 episodes today of positional dizziness and vertiginous type symptoms that were reproducible on change in position and ceased when she had been at that position for some time. There is no obvious reproducible nystagmus, NIH stroke scale is 0. Patient has significant improvement after fluids and meclizine. Labs are reassuring, CT shows no significant finding. Disposition: see below, along with detailed discharge instructions that have been reviewed with patient as well as indications for ED re-evaluation and additional outpatient follow up Discharge Plan Departure Patient Disposition: Home Clinical Impression: Vertigo Instructions: DI for Vertigo Activity Restrictions/Additional Instructions: *You have been diagnosed with [vertigo. As we discussed your history and physical exam as well as EKG, labs, CT scan and response to therapies is reassuring and most consistent with some combination of mild dehydration and some peripheral vertigl *What to do: *Please continue to take your regular medications as directed. [ x] New medication prescriptions sent to your pharmacy: [[facility] ] [ ] New medication written as a paper prescription [ ] No new medications given *Please follow up with your primary care provider in 2-3 days, call for an appointment. Let them know you were seen in the Emergency Department and that we ask that you be seen in follow up. We will electronically transmit a record of today's note if your PCP is in our system *If you do not have a primary care provider please contact the [facility] Resource line at [phone]. They will ask some questions about your medical history and help get you set up with a doctor in the community. *Return to Emergency Department if you should have any new, worsening or concerning symptoms, such as [fever greater than 101 F, shaking chills, worsening pain, persistent vomiting or other bothersome symptoms] Prescriptions: No Action montelukast [Singulair] 10 mg tablet 10 mg PO QDAY Qty: 90 3RF progesterone micronized 100 mg capsule 100 mg PO QAM Qty: 90 3RF estradiol [Estrace] 0.01 % (0.1 mg/gram) cream 1 g vaginal 3XW Qty: 42.5 3RF rosuvastatin 10 mg tablet 10 mg PO DAILY Qty: 90 3RF latanoprost 0.005 % drops 1 drp EYE-BOTH DAILY ferrous sulfate [iron] 325 mg (65 mg iron) Tablet 325 mg PO DAILY Patient Comments: PT UNSURE OF DOSE-PT WILL VERIFY turmeric 400 mg Capsule 400 mg PO DAILY magnesium 500 mg Tablet 500 mg PO DAILY Imbruvica 140 mg Capsule 420 mg PO DAILY Qty: 90 5RF Rx Instructions: take 3-140mg capsules at same time each day; swallow whole with water; do not crush, chew, break, dissolve, cut, or open. calcium carbonate [Calcium 500] 500 mg calcium (1,250 mg) Tablet 500 mg PO DAILY cholecalciferol (vitamin D3) [Vitamin D3] 1,000 unit Capsule 1,000 unit PO DAILY Patient Comments: unknown dose Daily Multivitamin 200-100-500 mcg Capsule 2 tab PO DAILY Referrals: Redd Martinez MD [Primary Care Provider] - Stand Alone Forms: Patient Portal/API
--- NOTE | 2022-04-14 18:40 | DI.CT.S_ITS ---
PROCEDURE: CT HEAD/BRAIN WO CON INDICATIONS: dizziness TECHNIQUE: Noncontrast 4.5 mm thick angled axial sections acquired from the foramen magnum to the vertex, with coronal and sagittal reformats. For radiation dose reduction, the following was used: automated exposure control, adjustment of mA and/or kV according to patient size. COMPARISON: None. FINDINGS: Image quality: Excellent. CSF spaces: Basal cisterns are patent. No extra-axial fluid collections. The ventricles are symmetric in size and shape. Brain: No intracranial bleeds or masses. There is cerebral volume loss for age, with resultant ventricular and sulcal prominence. There are periventricular and deep white matter chronic small vessel ischemic changes. There is intracranial internal carotid artery atherosclerosis. Skull and face: Calvarium and visualized facial bones appear intact, without suspicious lesions. Sinuses: Visualized sinuses and mastoids are clear. IMPRESSION: No evidence acute intracranial abnormality. Dictated by: Nicholas Kellogg M.D. on 04/14/2022 at 19:25 Approved by: Nicholas Kellogg M.D. on 04/14/2022 at 19:25
[2022-04-14] MEDS: MECLIZINE HCL 12.5 MG TABLET 50 MG PO (19:20)
[2022-04-14] MEDS: SODIUM CHLORIDE 0.9% 1,000 ML 1000 ML IV (19:20)
[2022-04-14 20:06] LABS: Bacteria Urine None Seen; Culture Indicated Urine Cult Not Indicated; RBC Urine 5-10/HPF (0-5/HPF); Squamous Epithelial Cell Urine 0-1 /HPF (0-5/HPF); WBC Urine 0-1/HPF (0-5/HPF)
== END 2022-04-14 21:17 | disposition home or self-care (01) ==
PROVIDERS: Emergency Medicine; Emergency Provider Emergency Medicine; PCP Internal Medicine
DX: R42 Dizziness and giddiness (principal); R07.9 Chest pain, unspecified
CPT/HCPCS: 36415; 70450; 71045; 80053; 81003; 81015; 82550; 82553; 83690; 83735; 84484; 85025; 85610; 85730; 93005; 93010; 99284

== ENCOUNTER → 2022-05-22 14:41 | Outpatient (CLI) | payer OTHER, SELFPAY ==
--- NOTE | 2022-05-22 14:43 | DI.RAD.S_ITS ---
PROCEDURE: XR ANKLE RT MIN 3V INDICATIONS: right ankle pain, no trauma TECHNIQUE: 3 views of the ankle were acquired. COMPARISON: [facility], CR, XR ANKLE RT MIN 3V, 05/23/2021, 16:11. FINDINGS: Bones: Mild bony step-off involves the medial malleolus. Soft tissues: No tibiotalar joint effusion. Achilles tendon appears normal. IMPRESSION: Possible mildly displaced medial malleolus fracture. This could be further assessed with MRI, if clinically indicated. Dictated by: Deloris Blackwood M.D. on 05/22/2022 at 16:14 Transcribed by: ALEXY on 05/22/2022 at 16:15 Approved by: Deloris Blackwood M.D. on 05/22/2022 at 16:54
== END ==
PROVIDERS: PCP Internal Medicine; Referring Provider Internal Medicine; Visit Provider Internal Medicine
DX: M25.571 Pain in right ankle and joints of right foot (principal)
CPT/HCPCS: 73610

== ENCOUNTER → 2022-06-07 09:30 | Outpatient (CLI) | payer OTHER, SELFPAY ==
--- NOTE | 2022-06-07 09:30 | DI.MRI.S_ITS ---
PROCEDURE: MR ANKLE RT WO CON INDICATIONS: right ankle pain, abnormal xray TECHNIQUE: Noncontrast sagittal T1 spin echo and T2 fast spin echo with fat saturation, axial proton density fast spin echo and T2 fast spin echo with fat saturation, coronal T1 spin echo and T2 fast spin echo with fat saturation through the ankle/hindfoot. COMPARISON: [facility], CR, XR ANKLE RT MIN 3V, 05/22/2022, 15:03. FINDINGS: Image quality: Excellent. Bones and joints: There is mild marrow edema involving mid to distal portion of talus, medial malleolus, 3rd and 4th metatarsal bases and lateral cuneiform. Subtle linear hypointense signal is seen involving 4th and possibly 3rd metatarsal base. No other area of abnormal marrow signal is seen. Significant soft tissue swelling and edema around ankle joint is noted. Moderate midfoot and hindfoot joint osteoarthritic changes are seen most notably involving talonavicular joint. There is small joint effusion, no gross loose bodies. No osteochondral injuries of talar dome. Well-defined plantar and dorsal calcaneal enthesophytes are seen. Medial structures: The posterior tibialis tendon is markedly thickened with intrasubstance T2 hyperintense signal and small to moderate surrounding fluid. The flexor digitorum longus, and flexor hallucis longus tendons are intact. The posterior tibial neurovascular bundle appears normal within the tarsal tunnel, without extrinsic mass effect. The deltoid ligament and spring ligament are thickened. Lateral structures: The anterior talofibular, calcaneofibular, and posterior talofibular ligaments appear mildly thickened with intrasubstance T2 hyperintense signal. More superiorly, the anterior and posterior tibiofibular ligaments also appears thickened with intrasubstance T2 hyperintense signal. The tibiofibular syndesmosis is normal in width at 2 mm or less. The peroneus brevis tendon is intact. The peroneus longus tendon is thickened at the level of mid to distal calcaneus extending to calcaneocuboid joint with small amount of surrounding fluid distending tendon sheath. Adjacent bony peroneal tubercle and retrotrochlear prominence are normal in size. The sinus tarsi demonstrates normal fatty signal, without edema, fibrosis, or cyst formation. Visualized sinus tarsi components (cervical ligament, interosseous talocalcaneal ligament, roots of the inferior extensor retinaculum) appear normal. The calcaneonavicular and calcaneocuboid components of the bifurcate ligament appear intact. The dorsal calcaneocuboid ligament appears intact. Anterior structures: The tibialis anterior, and extensor hallucis longus tendons are intact. There is focal thickening involving extensor digitorum longus tendon at the level dorsal to talonavicular joint and distal talus. The dorsal talonavicular ligament appears thickened with intrasubstance T2 hyperintense signal. Posterior and plantar structures: Mildly thickened distal Achilles tendon to its posterior calcaneal insertion is seen. Medial and lateral bands of the plantar fascia are of normal thickness. No abductor digiti quinti muscle atrophy to suggest Wright neuropathy. IMPRESSION: 1. Bony contusion involving distal talus, medial malleolus, lateral cuneiform as well as 3rd and 4th metatarsal bases. Early stress fracture involving 3rd and 4th metatarsal bases cannot be excluded. Clinical correlation and radiographic follow-up is recommended. No other fracture or dislocation. Moderate midfoot and hindfoot joint osteoarthritis. Small amount of joint effusion. No gross osteochondral injuries of talar dome. 2. Moderate grade tendinosis and intrasubstance partial-thickness tear involving posterior tibialis tendon at the level of mid to distal talus and talonavicular joint is seen. 3. Low-grade medial ankle ligament sprain. Low-grade sprain/intrasubstance partial-thickness tear involving lateral ankle ligaments. No full-thickness ligament rupture. 4. Tendinosis involving peroneus longus tendon at the level of mid to distal calcaneus and calcaneocuboid joint. 5. Focal tendinosis involving extensor digitorum longus tendon at the level of talonavicular joint. 6. Sprain/intrasubstance partial-thickness tear involving dorsal talonavicular ligament. 7. Mild distal Achilles tendinosis, no Achilles tendon rupture. Dictated by: Pablo Ross M.D. on 06/07/2022 at 10:12 Approved by: Pablo Ross M.D. on 06/07/2022 at 10:20
== END ==
PROVIDERS: PCP Internal Medicine; Referring Provider Internal Medicine; Visit Provider Internal Medicine
DX: S96.811A Strain of other specified muscles and tendons at ankle and foot level, right foot, initial encounter (principal); S93.491A Sprain of other ligament of right ankle, initial encounter; S90.01XA Contusion of right ankle, initial encounter; M25.571 Pain in right ankle and joints of right foot; M19.071 Primary osteoarthritis, right ankle and foot; M25.474 Effusion, right foot
CPT/HCPCS: 73721

== ENCOUNTER → 2023-02-19 13:18 | Outpatient (CLI) | payer OTHER, SELFPAY ==
--- NOTE | 2023-02-19 | DI.MG.S_ITS ---
BILATERAL DIGITAL SCREENING MAMMOGRAM 3D/2D WITH CAD: 02/19/2023 CLINICAL: Routine screening. Comparison is made to exams dated: 02/25/2021 mammogram, 01/20/2021 mammogram, and 11/24/2017 mammogram - [facility]. Both breasts are heterogeneously dense, which may obscure small masses (category c / 51-75% glandular tissue). Current study was also evaluated with a Computer Aided Detection (CAD) system. There are benign calcifications in both breasts. There also is a biopsy clip in the left breast. No significant masses, calcifications, or other findings are seen in either breast. There has been no significant interval change. IMPRESSION: BENIGN There is no mammographic evidence of malignancy. A 1 year screening mammogram is recommended. Based on the Tyrer Cuzick model (a risk assessment model) the patient's lifetime risk is 6.3% and her 10 year risk is 4.3%. According to the ACR, ACS, and NCCN guidelines, an annual breast MRI exam along with mammogram is recommended if the patient's lifetime risk is 20% or greater. This exam was interpreted at Station ID: [id number]. NOTE: For mammograms, a report in lay terms will be sent to the patient. Approximately 15% of breast malignancies will not be visualized mammographically. In the management of a palpable breast mass, a negative mammogram must not discourage biopsy of a clinically suspicious lesion. Electronically Signed By: Sera correa/linda:02/19/2023 15:00:04 letter sent: Normal Exam ACR BI-RADS Category 2: Benign Finding(s) [id number]
[2023-02-19 15:46] LABS: Aspartate Aminotransferase 25 IU/L (14-36); BUN Creatinine Ratio 24.7 (6-22); Blood Urea Nitrogen 18 mg/dL (7-17); Calcium 9.3 mg/dL (8.4-10.2); Carbon Dioxide 25 mmol/L (22-32); Chloride 105 mmol/L (98-107); Cholesterol 123 mg/dL (140-199); Estimated Glomerular Filt Rate > 60 mL/min (>60); Glucose 87 mg/dL (80-110); HDL Cholesterol 44 mg/dL (40-60); HEMOLYSIS < 15 (0-50); LDL Cholesterol Calculated 58 mg/dL (<100); Potassium 3.8 mmol/L (3.4-5.1); Sodium 136 mmol/L (137-145); Triglycerides 104 mg/dL (35-150)
== END ==
LOC: MAMMO 13:19
PROVIDERS: PCP Internal Medicine; Referring Provider Internal Medicine; Visit Provider Internal Medicine
DX: Z12.31 Encounter for screening mammogram for malignant neoplasm of breast (principal); E78.2 Mixed hyperlipidemia; C83.00 Small cell B-cell lymphoma, unspecified site; R92.333 Mammographic heterogeneous density, bilateral breasts
CPT/HCPCS: 36415; 77063; 77067; 80048; 80061; 84450

== ENCOUNTER → 2023-04-30 12:11 | Outpatient (CLI) | payer OTHER, SELFPAY ==
--- NOTE | 2023-04-30 12:13 | DI.RAD.S_ITS ---
PROCEDURE: XR ANKLE RT MIN 3V INDICATIONS: Right ankle pain/wound. TECHNIQUE: 3 views of the ankle were acquired. COMPARISON: [facility], CR, XR ANKLE RT MIN 3V, 05/22/2022, 15:03. [facility], CR, XR ANKLE RT MIN 3V, 05/23/2021, 16:11. FINDINGS: Bones: No fractures or dislocations. Ankle mortise is normally aligned. Plantar and dorsal calcaneal spur/enthesophytes. Soft tissues: No radiographically evident soft tissue swelling.. IMPRESSION: Plantar and dorsal calcaneal spur/enthesophytes No acute findings Dictated by: Valdez Gracia M.D. on 04/30/2023 at 14:52 Approved by: Valdez Gracia M.D. on 04/30/2023 at 14:53
--- NOTE | 2023-04-30 12:13 | DI.RAD.S_ITS ---
PROCEDURE: XR HAND RT MIN 3V INDICATIONS: Right-hand injury TECHNIQUE: 3 views of the hand(s) acquired. COMPARISON: None. FINDINGS: Bones: Degenerative changes of the 2nd 3rd and 5th distal interphalangeal joints , 1st carpometacarpal joint are seen. No fractures or dislocations. Carpal bones are normally aligned. Soft tissues: No radiographically evident soft tissue swelling IMPRESSION: Severe degenerative changes as noted above No acute bony abnormality. Dictated by: Valdez Gracia M.D. on 04/30/2023 at 14:43 Approved by: Valdez Gracia M.D. on 04/30/2023 at 14:51
== END ==
LOC: RAD 12:13
PROVIDERS: PCP Internal Medicine; Referring Provider Nurse Practitioner Family; Visit Provider Nurse Practitioner Family
DX: S91.001A Unspecified open wound, right ankle, initial encounter (principal); M25.571 Pain in right ankle and joints of right foot; M77.31 Calcaneal spur, right foot; M79.641 Pain in right hand; X58.XXXA Exposure to other specified factors, initial encounter
CPT/HCPCS: 73130; 73610

== ENCOUNTER 2024-07-22 12:59 | Emergency (ER) | payer OTHER, SELFPAY ==
[2024-07-22 13:56] VITALS: BP 181/82; PULSE 72; RESP 16; TEMP 36.7; O2SAT 99; BMI 31.1
--- NOTE | 2024-07-22 14:02 | DI.RAD.S_ITS ---
PROCEDURE: XR KNEE RT 3V INDICATIONS: fall on right knee with pain TECHNIQUE: 3 views of the knee were acquired. COMPARISON: [facility], CR, XR KNEE 1 OR 2 VIEWS RIGHT, 06/17/2024, 14:14. [facility], CR, XR KNEE LT 3V, 12/01/2019, 13:13. [facility], CR, XR KNEE LT 1TO2V, 01/25/2019, 9:52. FINDINGS AND IMPRESSION: Right knee arthroplasty in similar position compared to prior. No displaced fractures identified by radiography. Persistent peripatellar edema. Consider cross-sectional imaging if there is high clinical concern. Dictated by: Gabo Sandoval M.D. on 07/22/2024 at 14:57 Approved by: Gabo Sandoval M.D. on 07/22/2024 at 14:58
--- NOTE | 2024-07-22 18:26 | PC.NURSE ---
Pt reports she had a total knee surgery done at [facility] approx 7-7.5 weeks ago. Pt reports she fell and opened up the sutures in her knee. Pt reports she believes her tetanus is UTD. Pt reports no complications post knee surery. Pt states she fell around mid afternoon.
--- NOTE | 2024-07-22 18:58 | PC.NURSE ---
Pt states last knee bandage caused reaction; sutures bandaged up with nonadherent, padding, and nixon wrap per pa instructions.
[2024-07-22 18:59] VITALS: BP 149/67; PULSE 54; RESP 15; TEMP 36.6; O2SAT 98
--- NOTE | 2024-07-22 19:17 | ED.LOWEXIN ---
HPI - Extremity Injury (Lower) <Adriano Mccain PA-C - Last Filed: 07/22/24 19:23> General Chief Complaint: Extremity Injury, Lower Stated Complaint: Fell on right knee after surgery Time Seen by Provider: 07/22/24 15:58 Source: patient Mode of arrival: Wheelchair History of Present Illness HPI Narrative: 73-year-old female status post a right knee surgery performed by Dr. Gaspar at [facility] presents to the ED status post a knee injury to the same knee sustained earlier today. Patient had a mechanical fall landing on the right knee. Patient has a small patellar laceration. Patient is able to bear weight and walk. Patient takes improving which is a immunosuppressant for CLL, which also access a blood thinner. No head strike, loss of consciousness. No chest pain, shortness of breath, numbness, tingling, weakness. Related Data Home Medications ?Medication ?Instructions ?Recorded ?Confirmed cholecalciferol (vitamin D3) 25 1,000 unit PO DAILY 02/07/18 07/07/24 mcg (1,000 unit) capsule (Vitamin D3) [id number] 200 mcg-vit K 100 2 tab PO DAILY 02/07/18 07/07/24 mcg-lycop 500 [id number] capsule (Daily Multivitamin) calcium carbonate (Calcium 500) 500 mg PO DAILY 01/08/20 07/07/24 ferrous sulfate 325 mg (65 mg 325 mg PO DAILY 04/27/20 07/07/24 iron) tablet (iron) magnesium 500 mg tablet 500 mg PO DAILY 06/23/20 07/07/24 latanoprost 0.005 % eye drops 1 drp EYE-BOTH DAILY 04/07/22 07/07/24 aspirin 81 mg tablet,delayed 81 mg PO DAILY 07/07/24 07/07/24 release (Adult Low Dose Aspirin) meloxicam PO 07/07/24 Previous Rx's ?Medication ?Instructions ?Recorded ibrutinib 140 mg capsule 420 mg (3 x 140 mg) PO DAILY #90 02/15/22 (Imbruvica) caps rosuvastatin 10 mg tablet 10 mg PO DAILY #90 tabs 08/28/22 montelukast 10 mg tablet 10 mg PO QDAY #90 tabs 09/19/23 (Singulair) estradiol 0.01% (0.1 mg/gram) 1 g vaginal 3XW #42.5 grams 10/30/23 vaginal cream (Estrace) progesterone micronized 100 mg 100 mg PO QAM #90 caps 03/25/24 capsule Allergies Allergy/AdvReac Type Severity Reaction Status Date / Time Penicillins Allergy Mild Nausea Verified 07/22/24 13:56 Sulfa (Sulfonamide Allergy Mild RASH Verified 07/22/24 13:56 Antibiotics) amoxicillin (From Augmentin) AdvReac Unknown nausea, Verified 07/22/24 13:56 fainted clavulanic acid (From AdvReac Unknown nausea, Verified 07/22/24 13:56 Augmentin) fainted Review of Systems <Adriano Mccain PA-C - Last Filed: 07/22/24 19:23> Constitutional Constitutional: Denies chills, Denies fatigue, Denies fever(s), Denies frequent falls, Denies lethargy and Denies weakness Eyes Eyes: Denies change in vision, Denies eye discharge, Denies irritation and Denies loss of vision ENT Ears, Nose, Mouth, and Throat: Denies change in voice, Denies dizziness, Denies neck pain, Denies sore throat and Denies throat swelling Cardiovascular Cardiovascular: Denies chest pain, Denies irregular heart rhythm, Denies lightheadedness, Denies palpitations, Denies dyspnea, Denies dyspnea on exertion and Denies orthopnea Respiratory Respiratory: Denies cough, Denies dyspnea, Denies dyspnea on exertion and Denies wheezing Gastrointestinal Gastrointestinal: Denies abdominal pain, Denies change in bowel habits, Denies diarrhea, Denies nausea and Denies vomiting Musculoskeletal Musculoskeletal: Denies neck pain and Denies numbness Comments: Right knee injury, laceration Integumentary/Breasts Skin/Breast: Denies pruritus, Denies erythema, Denies rash and Denies wounds Neurologic Neurologic: Denies behavioral changes, Denies confusion, Denies dizziness, Denies frequent falls, Denies loss of vision, Denies numbness and Denies weakness Psychiatric Psychiatric: Denies anxiety, Denies behavioral changes, Denies confusion, Denies depression, Denies homicidal ideation and Denies suicidal ideation Endocrine Endocrine: Denies fatigue, Denies flushing and Denies palpitations Hematologic/Lymphatic Hematologic/Lymphatic: Denies easy bruising Allergic/Immunologic Allergic/Immunologic: Denies urticaria, Denies throat swelling and Denies wheezing Patient History <Hyma Adán, PA-C - Last Filed: 07/22/24 19:23> Medical History Osteopenia Wears glasses Recurrent sinusitis Ovarian cyst (~1980) Skin cancer Eczema (~1959) Asthma (~1954) Mumps (~1959) Measles Osteoarthritis of left knee Surgical History Status post left partial knee replacement (~06/2021) History of total right knee replacement (06/02/24) Anesthesia History of knee surgery (~2014) S/P biopsy (~2014) History of hysterectomy (~1980) S/P tonsillectomy Family History Father Aneurysm Mother Lymph node cancer Grandmother History of heart disease Grandfather History of heart disease Grandmother Alzheimer's disease Grandfather History of heart disease Social History details: Single, formerly , former [employer], owns [employer], one son household members: none Smoking Status: Never smoker alcohol intake: current Smoking Status: Never smoker alcohol intake frequency: a few times a week Exam <Adriano Mccain PA-C - Last Filed: 07/22/24 19:23> Narrative Exam Narrative: Const General:?cooperative, healthy appearing and comfortable [facility] Head:?normal to inspection Ears:?hearing grossly normal bilaterally Nose:?external nose normal Face and sinus:?normal facial exam and sinuses nontender Mouth:?oral mucosae normal Throat:?posterior oropharynx normal Eyes General:?appearance normal, both eyes and all related structures Neck Neck:?normal visual inspection and no lymphadenopathy noted Resp Effort & Inspection:?normal respiratory effort Auscultation:?clear to auscultation bilaterally Cardio Rate:?regular rate Rhythm:?regular rhythm Musculoskeletal/integumentary There is some prepatellar swelling, 5 cm linear, longitudinal laceration to the patellar area of the right knee. Bleeding is controlled with pressure. There is full range of motion. Patient is able to bear weight and walk. Strength and sensation is intact. Neurovascularly intact. Neuro General:?patient alert, patient awake and patient oriented x3 Initial Vital Signs Initial Vital Signs: Vital Signs Temperature 98.1 F 07/22/24 13:56 Pulse Rate 72 07/22/24 13:56 Respiratory Rate 16 07/22/24 13:56 Blood Pressure 181/82 H 07/22/24 13:56 Pulse Oximetry 99 07/22/24 13:56 Oxygen Delivery Method Room Air 07/22/24 13:56 <Romeo Craig MD - Last Filed: 08/07/24 06:59> Initial Vital Signs Initial Vital Signs: Vital Signs Temperature 98.1 F 07/22/24 13:56 Pulse Rate 72 07/22/24 13:56 Respiratory Rate 16 07/22/24 13:56 Blood Pressure 181/82 H 07/22/24 13:56 Pulse Oximetry 99 07/22/24 13:56 Oxygen Delivery Method Room Air 07/22/24 13:56 Procedures <Adriano Mccain PA-C - Last Filed: 07/22/24 19:23> Laceration Repair Laceration 1: Site: lower extremity Side (If applicable): right Size (cm): 5 Description: linear Local Anesthetic: lidocaine 1% and with epi Amount of anesthesia used (mL): 4 Pre-repair: wound explored, irrigated extensively and deep structures intact Skin layer closed with: nylon Skin layer suture size: 4-0 Number of sutures: 7 Technique: simple, interrupted Course <Adriano Mccain PA-C - Last Filed: 07/22/24 19:23> Orders Ordered: ED Orders 07/22/24 14:02 XR knee RT 3V Stat Vital Signs Vital signs: Vital Signs - 8 hr 07/22/24 13:56 07/22/24 18:59 Temperature 98.1 F 98 F Pulse Rate 72 54 L Respiratory Rate 16 15 Blood Pressure 181/82 H 149/67 H Pulse Oximetry 99 98 Oxygen Delivery Method Room Air Room Air <Romeo Craig MD - Last Filed: 08/07/24 06:59> Orders Ordered: ED Orders 07/22/24 14:02 XR knee RT 3V Stat Vital Signs Vital signs: Vital Signs - 8 hr 07/22/24 13:56 07/22/24 18:59 Temperature 98.1 F 98 F Pulse Rate 72 54 L Respiratory Rate 16 15 Blood Pressure 181/82 H 149/67 H Pulse Oximetry 99 98 Oxygen Delivery Method Room Air Room Air MDM - Extremity Injury (Lower) <Adriano Mccain PA-C - Last Filed: 07/22/24 19:23> [facility] Narrative Medical decision making narrative: 73-year-old female status post a right knee surgery performed by Dr. Gaspar at [facility] presents to the ED status post a knee injury to the same knee sustained earlier today. Concern for fracture/dislocation versus laceration versus other. Patient's tetanus is up-to-date. X-ray was obtained which shows right knee arthroplasty in similar position compared to prior. No displaced fractures identified by radiography. Persistent peripatellar edema. Discussed findings with patient. Laceration was repaired with 7 sutures. Wound care, signs of infection, suture removal discussed with patient. Recommend follow-up with PCP, Dr. Gaspar. ED return precautions discussed with patient. Patient verbalized understanding. Medical records reviewed: Yes Discharge Plan Departure Patient Disposition: Home Clinical Impression: Laceration Instructions: DI for Laceration Repair Activity Restrictions/Additional Instructions: You were evaluated in the ED for any injury from a fall. Your x-ray is normal. You sustained a laceration that was repaired with 7 sutures. The sutures will need to be removed in 8-10 days. You may return to the ED, follow-up with your PCP or go to an urgent care clinic for suture removal. You were also being prescribed antibiotics as a precautionary measure. Please take those as prescribed. Please keep the wound clean and dry for the 1st 24 hours, following which you may cleanse gently with soap and water. You may apply a clean bandage after thoroughly drying the wound. Please watch for signs of infection including worsening redness, swelling, pain, discharge, warmth. Return to the ED if you note any signs of infection. Please also follow-up with your ortho surgeon. Prescriptions: No Action rosuvastatin 10 mg tablet 10 mg PO DAILY Qty: 90 3RF montelukast [Singulair] 10 mg tablet 10 mg PO QDAY Qty: 90 3RF estradiol [Estrace] 0.01 % (0.1 mg/gram) cream 1 g vaginal 3XW Qty: 42.5 3RF progesterone micronized 100 mg capsule 100 mg PO QAM Qty: 90 3RF meloxicam PO aspirin [Adult Low Dose Aspirin] 81 mg tablet,delayed release (DR/EC) 81 mg PO DAILY latanoprost 0.005 % drops 1 drp EYE-BOTH DAILY ferrous sulfate [iron] 325 mg (65 mg iron) Tablet 325 mg PO DAILY Patient Comments: PT UNSURE OF DOSE-PT WILL VERIFY magnesium 500 mg Tablet 500 mg PO DAILY Imbruvica 140 mg Capsule 420 mg PO DAILY Qty: 90 5RF Rx Instructions: take 3-140mg capsules at same time each day; swallow whole with water; do not crush, chew, break, dissolve, cut, or open. calcium carbonate [Calcium 500] 500 mg calcium (1,250 mg) Tablet 500 mg PO DAILY cholecalciferol (vitamin D3) [Vitamin D3] 1,000 unit Capsule 1,000 unit PO DAILY Patient Comments: unknown dose Daily Multivitamin 200-100-500 mcg Capsule 2 tab PO DAILY Referrals: Redd Martinez MD [Primary Care Provider, Internal Medicine] Stand Alone Forms: Patient Portal/API ED Sign-out <Romeo Craig MD - Last Filed: 08/07/24 06:59> Cosign ED Attending Cosignature Attestation: I was immediately available in the department for consultation. ?This documentation has been reviewed and I agree with assessment and plan. Supervised by Romeo Craig MD
== END 2024-07-22 19:00 | disposition home or self-care (01) ==
PROVIDERS: Emergency Provider Student in an Organized Health Care Education/Training Program; PCP Internal Medicine
DX: S81.811A Laceration without foreign body, right lower leg, initial encounter (principal); W18.30XA Fall on same level, unspecified, initial encounter
CPT/HCPCS: 73562; 99281; 99283

== ENCOUNTER → 2024-10-20 10:45 | Outpatient (CLI) | payer OTHER, SELFPAY ==
--- NOTE | 2024-10-20 10:45 | DI.RAD.S_ITS ---
PROCEDURE: XR DEXA AXIAL SKELETON INDICATIONS: osteoporosis COMPARISON: [facility], , XR DEXA AXIAL SKELETON, 08/22/2021, 15:33. FINDINGS: Lumbar Spine: Bone mineral density 1.12 g/cm2, T score 0.7, normal. Left Femoral Neck: Bone mineral density is 0.68 g/cm2, T score -1.6. Left Hip: Bone mineral density is 0.83 g/cm2, T score -0.9, osteopenia. Fracture Risk Calculation (when applicable): 10-year fracture risk of a major osteoporotic fracture 10 percent and of a hip fracture 1.8 percent. (T score greater or equal to -1.0 to: NORMAL) (T score from -1.1 to -2.4: OSTEOPENIA) (T score less than or equal to -2.5: OSTEOPOROSIS) IMPRESSION: Osteopenia Follow-up guidelines as follows: Osteoporosis: Consider a repeat DEXA and Vertebral Fracture Assessment (VFA) exam in 2 years or sooner if medically necessary, to reassess this patient's status. Osteopenia: Consider a repeat DEXA in 2-3 years to reassess this patient's status, or if there is a new clinical indication. Normal: Consider a repeat DEXA in 5 years or sooner, or if there is a new clinical indication. All treatment decisions require clinical judgment and consideration of individual patient factors, including patient preferences, comorbidities, previous drug use, risk factors not captured in the FRAX model (e.g., frailty, falls, vitamin D deficiency, increased bone turnover, interval significant decline in bone density ) and possible under- or over-estimation of fracture risk by FRAX. In addition, the NOF Guide recommends that FDA-approved medical therapies be considered in postmenopausal women and men age >= 50 years with a: * Hip or vertebral (clinical or morphometric) fracture * T-score of <=-2.5 at the spine or hip * Ten-year fracture probability by FRAX of >= 3% for hip fracture or >=20% for major osteoporotic fracture. Dictated by: Gualberto Epps M.D. on 10/20/2024 at 16:00 Approved by: Gualberto Epps M.D. on 10/20/2024 at 16:03
--- NOTE | 2024-10-20 10:48 | DI.MRI.S_ITS ---
PROCEDURE: MR ANKLE RT WO CON INDICATIONS: osteoporosis screening/ pain in rightankle TECHNIQUE: Noncontrast sagittal T1 spin echo and T2 fast spin echo with fat saturation, axial proton density fast spin echo and T2 fast spin echo with fat saturation, coronal T1 spin echo and T2 fast spin echo with fat saturation through the ankle/hindfoot. COMPARISON: [facility], CR, ORTHO-XR ANKLE 3V WB RIGHT, 09/29/2024, 9:36. [facility], MR, MR ANKLE RT WO CON, 06/07/2022, 9:34. FINDINGS: Quality: Adequate Extensor tendons: Unremarkable Medial ankle tendons: Posterior tibialis tendon: Chronic near full-thickness tear and retraction. Flexor digitorum longus tendon: Intact. Flexor hallucis longus tendon: Intact. Medial ankle ligaments: Deltoid ligament, superficial and deep: Intact Spring ligaments: Intact. Lateral ankle tendons: Peroneus brevis tendon: Intact. Peroneus longus tendon: Intact. Lateral ankle ligaments: Tibiofibular ligaments: Intact Anterior talofibular ligament: Intact. Posterior talofibular ligament: Intact. Calcaneofibular ligament: Intact. Achilles tendon: Chronic non insertional thickening and increased signal consistent with tendinosis. Plantar fascia: Chronic thickening and increased signal with calcaneal spurring at the calcaneal attachment. Sinus tarsi: Unremarkable. Tarsal tunnel: Unremarkable. Cartilage: Severe degenerative arthritis at the talonavicular and calcaneocuboid joints with osseous hypertrophy and subchondral marrow edema like lesions. Severe degenerative changes of the 3rd and 4th tarsometatarsal joints. Bones: No fracture. Joints: No effusion. Other: None. 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 Achilles tendinosis. Chronic plantar fasciitis. Dictated by: Gualberto Epps M.D. on 10/20/2024 at 13:46 Approved by: Gualberto Epps M.D. on 10/20/2024 at 13:54
== END ==
LOC: MRI 10:45
PROVIDERS: PCP Internal Medicine; Referring Provider Podiatrist Foot & Ankle Surgery; Visit Provider Podiatrist Foot & Ankle Surgery
DX: S86.111A Strain of other muscle(s) and tendon(s) of posterior muscle group at lower leg level, right leg, initial encounter (principal); M19.071 Primary osteoarthritis, right ankle and foot; M76.61 Achilles tendinitis, right leg; M79.671 Pain in right foot; Q66.91 Congenital deformity of feet, unspecified, right foot; M85.89 Other specified disorders of bone density and structure, multiple sites; M72.2 Plantar fascial fibromatosis
CPT/HCPCS: 73721; 77080